=== PATIENT | female | born 1950 ===

== ENCOUNTER 2016-11-22 08:20 | Day surgery (SDC) | payer OTHER ==
[2016-11-21 12:25] VITALS: BMI 32.1
[2016-11-22] MEDS ORDERED: Propofol 10 mg/ml Inj (20 ML) ONE (12:42)
[2016-11-22] MEDS ORDERED: Lactated Ringer's 1,000 ML IV SCH (13:00)
[2016-11-22 13:07] VITALS: TEMP 97.8
[2016-11-22 13:19] VITALS: O2SAT 100
[2016-11-22 13:38] VITALS: BP 120/69; PULSE 60; RESP 13
== END 2016-11-22 13:50 | disposition home or self-care (01) ==
LOC: C.ENDO 08:20
PROVIDERS: ATTEND Internal Medicine Gastroenterology
DX: Z12.11 Encounter for screening for malignant neoplasm of colon (principal); K64.8 Other hemorrhoids
CPT/HCPCS: 45378; 82948; J2704; J7120

== ENCOUNTER 2017-06-09 17:08 | Inpatient (IN) | payer MEDICAID, OTHER ==
[2017-06-09 17:09] VITALS: BMI 32.1
[2017-06-09] MEDS ORDERED: Iohexol 240 (50 ml) PO STA (18:01)
[2017-06-09] MEDS ORDERED: Sodium Chloride 0.9% 1,000 ML IV ONE ×2 (18:01→21:53)
--- NOTE | 2017-06-09 18:02 | C.PDOC ---
History Of Present Illness <Ebony Saldana - Last Filed: 06/09/17 17:58> <Jacqueline Kauffman - Last Filed: 06/09/17 18:13> A 67 year old female, whose past medical history includes Diabetes, HTN, Hypercholesterolemia, Hypothyroidism, and Osteoporosis is brought into the emergency department accompanied by family members for left mid abdominal pain that radiates to her left lower back and occasionally radiates down her left leg , which began 3 days ago. The patient reports that when she came back from [facility] on 05/30/17 she began having constant left ear pain after her flight. Then she began to have the abdominal discomfort, which gradually worsened. Now the patient states she began to have a fever yesterday and her abdominal pain is at its all time worse. The patient denies any nausea, vomiting, diarrhea, dysuria, or any other complaints at this time. (JamariJacqueline) <Ebony Saldana - Last Filed: 06/09/17 17:58> History Per: Patient, Family History/Exam Limitations: no limitations Onset/Duration Of Symptoms: Days (x 3 days) Current Symptoms Are (Timing): Worse Location Of Pain: Ear(s), Headache Associated Symptoms: Fever <Jacqueline Kauffman - Last Filed: 06/09/17 18:13> Time Seen by Provider: 06/09/17 17:41 Chief Complaint (Nursing): Flu-like Symptoms Past Medical History - Medical History PMH: Diabetes, HTN, Hypercholesterolemia, Hypothyroidism, Osteoporosis Denies: Chronic Kidney Disease - Social History Hx Tobacco Use: No Hx Alcohol Use: No Hx Substance Use: No - Immunization History Hx Tetanus Toxoid Vaccination: No Hx Influenza Vaccination: Yes Hx Pneumococcal Vaccination: No <Ebony Saldana - Last Filed: 06/09/17 17:58> Reviewed: Historical Data, Nursing Documentation, Vital Signs Family History: States: Unknown Family Hx <Jacqueline Kauffman - Last Filed: 06/09/17 18:13> Vital Signs: Last Vital Signs Temp 100.1 F H 06/09/17 17:21 Pulse 118 H 06/09/17 17:11 Resp 18 06/09/17 17:11 BP 137/67 06/09/17 17:11 Pulse Ox 99 06/09/17 18:02 - [facility] Procedures CLOSURE SKIN & SUBCUTANEOUS NEC (08/01/13) TETANUS TOXOID ADMINIST (08/01/13) Review Of Systems Except As Marked, All Systems Reviewed And Found Negative. Constitutional: Positive for: Fever ENT: Positive for: Ear Pain. Negative for: Ear Discharge Gastrointestinal: Positive for: Abdominal Pain. Negative for: Nausea, Vomiting , Diarrhea Genitourinary: Negative for: Dysuria Musculoskeletal: Positive for: Back Pain <JamariJacqueline - Last Filed: 06/09/17 18:13> Physical Exam - Physical Exam Appears: Well, Non-toxic, No Acute Distress Skin: Normal Color, Warm, Dry Head: Atraumatic, Normacephalic Ear(s): Bilateral: Normal Nose: Normal Oral Mucosa: Moist Tongue: Normal Appearing Lips: Normal Appearing Gingiva: Normal Appearing Throat: Normal, No Erythema, No Exudate, No Drooling, No Mass Neck: Normal Cardiovascular: Rhythm Regular Respiratory: Normal Breath Sounds Gastrointestinal/Abdominal: Bowel Sounds, Soft, Tenderness (Left mid abdominal tenderness) Back: Other (left lower tenderness) Extremity: Normal ROM Neurological/Psych: Oriented x3, Normal Speech, Normal Cognition <Jacqueline Kauffman - Last Filed: 06/09/17 18:13> ED Course And Treatment O2 Sat by Pulse Oximetry: 99 <Ebony Saldana - Last Filed: 06/09/17 17:58> Medical Decision Making <Ebony Saldana - Last Filed: 06/09/17 17:58> <Jacqueline Kauffman - Last Filed: 06/09/17 18:13> Medical Decision Making: Impression: A 67 year old female with abdominal pain. Treatment Plan: -- ABD & PEL CT -- Labs -- Influenza A B Stat -- Acetaminophen, Iohexol, IV Fluids Progress Notes: (Jacqueline Kauffman) Disposition <Ebony Saldana - Last Filed: 06/09/17 17:58> <JamariJacqueline - Last Filed: 06/09/17 18:13> - Disposition Forms: [facility] (Kyrgyz) <Ebony Saldana - Last Filed: 06/09/17 17:58> - Scribe Statement The provider has reviewed the documentation as recorded by the Scribe <Jacqueline Kauffman - Last Filed: 06/09/17 18:13> - Scribe Statement Parvin Garcia All medical record entries made by the Scribe were at my direction and personally dictated by me. I have reviewed the chart and agree that the record accurately reflects my personal performance of the history, physical exam, medical decision making, and the department course for this patient. I have also personally directed, reviewed, and agree with the discharge instructions and disposition. (Jacqueline Kauffman)
[2017-06-09] MEDS ORDERED: Sodium Chloride 0.9% 1,000 ML ONE (18:19)
--- NOTE | 2017-06-09 18:22 | C.PDOC ---
History Of Present Illness <Ebony Saldana - Last Filed: 06/09/17 19:23> <Saleem Ramon - Last Filed: 06/09/17 21:13> A 67 year old female, whose past medical history includes Diabetes, HTN, Hypercholesterolemia, Hypothyroidism, and Osteoporosis is brought into the emergency department accompanied by family members for left mid abdominal pain that radiates to her left lower back and occasionally radiates down her left leg x3 days. The patient reports that when she came back from [facility] on she began having left ear pain after her flight. Then she began to have the abdominal discomfort, which gradually worsened. Now the patient states she began to have a fever yesterday and her abdominal pain is at its all time worse. The patient denies any nausea, vomiting, diarrhea, dysuria, sick contacts or any other complaints at this time. (Ebony Saldana) History Per: Patient, Family History/Exam Limitations: no limitations Onset/Duration Of Symptoms: Days (3) Current Symptoms Are (Timing): Worse <Ebony Saldana - Last Filed: 06/09/17 19:23> <Saleem Ramon - Last Filed: 06/09/17 21:13> Time Seen by Provider: 06/09/17 17:41 Chief Complaint (Nursing): Flu-like Symptoms Past Medical History Reviewed: Historical Data, Nursing Documentation, Vital Signs - Medical History PMH: Diabetes, HTN, Hypercholesterolemia, Hypothyroidism, Osteoporosis Family History: States: No Known Family Hx - Social History Hx Tobacco Use: No Hx Alcohol Use: No Hx Substance Use: No - Immunization History Hx Tetanus Toxoid Vaccination: No Hx Influenza Vaccination: Yes Hx Pneumococcal Vaccination: No <Ebony Saldana - Last Filed: 06/09/17 19:23> Vital Signs: Last Vital Signs Temp 100.1 F H 06/09/17 17:21 Pulse 118 H 06/09/17 17:11 Resp 18 06/09/17 17:11 BP 137/67 06/09/17 17:11 Pulse Ox 99 06/09/17 19:23 - [facility] Procedures CLOSURE SKIN & SUBCUTANEOUS NEC (08/01/13) TETANUS TOXOID ADMINIST (08/01/13) Review Of Systems Except As Marked, All Systems Reviewed And Found Negative. Constitutional: Positive for: Fever ENT: Positive for: Ear Pain. Negative for: Ear Discharge Gastrointestinal: Positive for: Abdominal Pain. Negative for: Nausea, Vomiting , Diarrhea Genitourinary: Negative for: Dysuria Musculoskeletal: Positive for: Back Pain <Ebony Saldana Last Filed: 06/09/17 19:23> Physical Exam - Physical Exam Appears: Well, Non-toxic, No Acute Distress Skin: Warm, Dry, No Rash Head: Atraumatic, Normacephalic Ear(s): Bilateral: Normal Nose: Normal Oral Mucosa: Moist Tongue: Normal Appearing Lips: Normal Appearing Gingiva: Normal Appearing Throat: Normal, No Erythema, No Exudate, No Drooling Neck: Normal, Normal ROM, Supple Chest: Symmetrical, No Tenderness Cardiovascular: Rhythm Regular, No Murmur Respiratory: Normal Breath Sounds, No Rales, No Wheezing Gastrointestinal/Abdominal: Bowel Sounds, Soft, Tenderness (zLeft mid abdominal tenderness) Back: Normal Inspection, Other ((+) Left lower back tenderness) Extremity: Normal ROM, No Calf Tenderness, No Swelling, Other (no leg pain bl on palpation) Neurological/Psych: Oriented x3, Normal Speech, Normal Motor, Normal Sensation <Josr Saldanaa - Last Filed: 06/09/17 19:23> ED Course And Treatment - Laboratory Results Result Diagrams: 06/09/17 18:17 06/09/17 18:17 Lab Interpretation: Abnormal (leukocytosis) O2 Sat by Pulse Oximetry: 99 (RA) Pulse Ox Interpretation: Normal <Josr Saldanaa Filed: 06/09/17 19:23> - Laboratory Results Result Diagrams: 06/09/17 18:17 06/09/17 18:17 ECG: Interpreted By De ECG Rhythm: Sinus Rhythm ECG Interpretation: Normal Pulse Ox Interpretation: Normal - Radiology CXR: Interpreted by De CXR Interpretation: Yes: No Acute Disease - Other Rad CT Abd/Pelvis X-Ray: Read By Radiologist (+ L Pyelonephritis) Progress Note: ua/UC, Rocephin IV. 1899: signed over @ 1900, pending CT Abd/ pelvis, L abd/flank pain, + leukocytosis/pyuria. Pt seen and examined, NAD, L upper abd discomfort. - Physician Consult Information Outcome Of Conversation: [id number]: d/w Dr Fuchs- Hospitalist Arch Support Technician, ok to Adm Med Surg <Saleem Ramon E - Last Filed: 06/09/17 21:13> Medical Decision Making <Ebony Saldana - Last Filed: 06/09/17 19:23> <Saleem Ramon - Last Filed: 06/09/17 21:13> Medical Decision Making: L pyelo (Saleem Ramon) Disposition - Disposition Disposition Time: 19:22 <Ebony Saldana - Last Filed: 06/09/17 19:23> Doctor Will See Patient In The: Hospital Counseled Patient/Family Regarding: Studies Performed, Diagnosis <Saleem Ramon - Last Filed: 06/09/17 21:13> - Disposition Disposition: HOSPITALIZED Condition: GOOD Forms: [facility] (Latvian) - Clinical Impression Clinical Impression: Abdominal pain, Ear pain, left, Pyelonephritis, acute - PA / [employer] / Resident Statement MD/DO has reviewed & agrees with the documentation as recorded. - Scribe Statement The provider has reviewed the documentation as recorded by the Scribe <Ebony Saldana - Last Filed: 06/09/17 19:23> Physician Patient Turnover Patient Signed Over To: Saleem Ramon Handoff Comments: pending abd CT, flu, labs <Ebony Saldana - Last Filed: 06/09/17 19:23>
[2017-06-09 18:29] LABS: BASO % 0.2 % (0.0-2.0); EOS % 0.3 % (0.0-4.0); HEMATOCRIT 36.6 % (34.0-47.0); LYMPH # 1.4 K/uL (1.0-4.3); LYMPH % 10.3 % (20.0-40.0); MEAN CELL VOLUME 85.4 fL (81.0-99.0); MEAN CORPUSCULAR HEMOGLOBIN 28.9 pg (27.0-31.0); MEAN CORPUSCULAR HGB CONC 33.8 g/dL (33.0-37.0); MEAN PLATELET VOLUME 9.1 fL (7.2-11.7); MONO # 0.7 K/uL (0.0-0.8); MONO % 4.9 % (0.0-10.0); RED CELL DISTRIBUTION WIDTH 12.9 % (11.5-14.5); WHITE BLOOD COUNT 13.8 K/uL (4.8-10.8)
[2017-06-09] MEDS ORDERED: Iohexol 240 (50 ml) ONE (18:38)
[2017-06-09 18:44] LABS: CHLORIDE 98 mmol/L (98-107); POTASSIUM 3.9 mmol/L (3.6-5.2); SODIUM 130 mmol/L (132-148)
[2017-06-09 18:46] LABS: GFR AFRICAN-AMERICAN > 60
[2017-06-09 18:47] LABS: ALB/GLOB RATIO 0.9 (1.0-2.1); ALKALINE PHOSPHATASE 122 U/L (38-126); ALT/SGPT 34 U/L (9-52); AST/SGOT 26 U/L (14-36); BILIRUBIN,TOTAL 0.9 mg/dL (0.2-1.3); BLOOD UREA NITROGEN 12 mg/dL (7-17); CALCIUM 9.1 mg/dl (8.6-10.4); CARBON DIOXIDE 21 mmol/L (22-30); GLUCOSE,RANDOM 144 mg/dL (65-105); TOTAL PROTEIN 7.6 g/dL (6.3-8.3)
[2017-06-09 19:11] LABS: URINE COLOR YELLOW (YELLOW)
[2017-06-09 19:12] LABS: URINE BILIRUBIN NEGATIVE (NEGATIVE); URINE BLOOD LARGE (NEGATIVE); URINE GLUCOSE (UA) NEGATIVE (Normal); URINE KETONE 40 mg/dL (NEGATIVE); URINE PROTEIN 100 mg/dL (NEGATIVE)
[2017-06-09 19:13] LABS: URINE LEUKOCYTE ESTERASE LARGE Leu/uL (Negative); URINE UROBILINOGEN N mg/dL (0.2-1.0)
[2017-06-09 19:22] LABS: RBC URINE 10 /hpf (0-3); URINE BACTERIA MOD (<OCC)
[2017-06-09 19:23] LABS: WBC URINE 25 /hpf (0-5)
[2017-06-09] MEDS ORDERED: Iodixanol 320 MG/ML 100 ML BOTTLE IV ONE (20:04)
[2017-06-09] MEDS ORDERED: cefTRIAXone IV 1 gm in Dextros 50 ML IV STA (21:07)
[2017-06-09] MEDS ORDERED: cefTRIAXone IV 1 gm in Dextros 50 ML IVPB ONE (21:32)
--- NOTE | 2017-06-09 23:12 | CP.PCM.HP ---
<Oscar Rivera - Last Filed: 06/10/17 05:02> History of Present Illness - History of Present Illness History of Present Illness: PGY1 Medicine Note for Dr. Fuchs A 67 year old macedonian speaking female with a past medical history of Diabetes, HTN, Hypercholesterolemia and Osteoporosis was brought into the emergency department accompanied by family members for left mid abdominal pain that radiates to her left lower back. The patient's granddaughter was used to translate at bedside. The patient reports that she began to experience abdominal discomfort approximately 3 days ago. She states that she began to experience subjective fever/chills yesterday and her abdominal pain has been worsening. The patient reports headaches and episodes of dizziness along with the subjective fevers. The patient denies any nausea, vomiting, diarrhea, dysuria, sick contacts or any other complaints at this time. Patient has recently returned from [facility] on May 30, 2017. PMH: Diabetes, HTN, Hypercholesterolemia and Osteoporosis PSH: denies Social: former light smoker (quit in when she was young), denies alcohol and illicit drug use Allergies: NKDA Home Meds: Glimpiride 2mg PO daily Quinapril 10mg PO daily Metformin 1000mg PO BID Atorvastin 20mg PO HS Ibuprofen 600mg PO PRN (takes about twice a week) Vitamin D3 2,000u PO daily Present on Admission - Present on Admission Any Indicators Present on Admission: No Review of Systems - Constitutional Constitutional: Chills, Fever, Headache - EENT Ears: Ear Pain (left, started on air plane on 05/30/17) Nose/Mouth/Throat: absent: Nasal Congestion, Neck Pain - Cardiovascular Cardiovascular: absent: Chest Pain, Leg Edema, Lightheadedness, Palpitations, Pedal Edema - Respiratory Respiratory: absent: Cough - Gastrointestinal Gastrointestinal: Abdominal Pain (mid left sided). absent: Constipation, Diarrhea, Nausea, Vomiting - Genitourinary Genitourinary: Flank Pain (left), Urinary Hesitance. absent: Dysuria, Urinary Frequency, Urinary Urgency Additional comments: Difficult to pee (pt believes it is due to decreased water intake) - Musculoskeletal Musculoskeletal: Back Pain. absent: Muscle Cramps, Numbness, Tingling - Neurological Neurological: Dizziness, Weakness (generalized). absent: Numbness - Psychiatric Psychiatric: absent: Confusion, Depression - Endocrine Endocrine: Cold Intolorance (chills), Heat Intolorance (subjective fevers). absent: Excessive Sweating, Palpitations Past Patient History - Past Medical History & Family History Past Medical History?: Yes - Past Social History Smoking Status: Never Smoked - CARDIAC Hx Hypercholesterolemia: Yes Hx Hypertension: Yes - PULMONARY Hx Respiratory Disorders: No - NEUROLOGICAL Hx Neurological Disorder: No - HEENT Hx HEENT Problems: Yes Hx Cataracts: Yes (BILAT. ( OF 11/21/16-NO SURGERY-POSS. DECEMBER 2016)) - ENDOCRINE/METABOLIC Hx Hypothyroidism: Yes - HEMATOLOGICAL/ONCOLOGICAL Hx Blood Disorders: No - INTEGUMENTARY Hx Dermatological Problems: No - MUSCULOSKELETAL/RHEUMATOLOGICAL Hx Osteoporosis: Yes - GASTROINTESTINAL Hx Gastrointestinal Disorders: No - GENITOURINARY/GYNECOLOGICAL Hx Genitourinary Disorders: No - PSYCHIATRIC Hx Substance Use: No - SURGICAL HISTORY Hx Surgeries: No - ANESTHESIA Hx Anesthesia: No Meds Allergies/Adverse Reactions: Allergies Allergy/AdvReac Type Severity Reaction Status Date / Time No Known Allergies Allergy Verified 06/09/17 17:20 Physical Exam - Constitutional Appears: Non-toxic, No Acute Distress - Head Exam Head Exam: ATRAUMATIC, NORMOCEPHALIC - Eye Exam Eye Exam: EOMI, Normal appearance, PERRL. absent: Scleral icterus - ENT Exam ENT Exam: Mucous Membranes Moist - Respiratory Exam Respiratory Exam: NORMAL BREATHING PATTERN. absent: Accessory Muscle Use, Respiratory Distress - Cardiovascular Exam Cardiovascular Exam: REGULAR RHYTHM, +S1, +S2. absent: JVD - GI/Abdominal Exam GI & Abdominal Exam: Normal Bowel Sounds, Soft. absent: Distended, Firm, Guarding, Rebound, Rigid, Tenderness - Extremities Exam Extremities exam: Positive for: normal capillary refill, normal inspection, pedal pulses present. Negative for: calf tenderness, pedal edema - Back Exam Back exam: CVA tenderness (L). absent: CVA tenderness (R), paraspinal tenderness, vertebral tenderness - Neurological Exam Neurological exam: Alert, Oriented x3 - Psychiatric Exam Psychiatric exam: Normal Affect, Normal Mood - Skin Skin Exam: Dry, Normal Color, Warm Results - Vital Signs Recent Vital Signs: Last Vital Signs Temp 99.2 F 06/09/17 22:03 Pulse 95 H 06/09/17 22:03 Resp 18 06/09/17 22:03 BP 106/70 06/09/17 22:03 Pulse Ox 97 06/09/17 22:03 - Labs Result Diagrams: 06/09/17 18:17 06/09/17 18:17 Labs: Laboratory Results - last 24 hr 06/09/17 06/09/17 06/09/17 18:17 18:17 18:39 WBC 13.8 H RBC 4.29 Hgb 12.4 Hct 36.6 MCV 85.4 D MCH 28.9 MCHC 33.8 RDW 12.9 Plt Count 213 MPV 9.1 Neut % (Auto) 84.3 H Lymph % (Auto) 10.3 L Hardeman % (Auto) 4.9 Eos % (Auto) 0.3 Baso % (Auto) 0.2 Neut # 11.6 H Lymph # 1.4 Hardeman # 0.7 Eos # 0.0 Baso # 0.0 Sodium 130 L Potassium 3.9 Chloride 98 Carbon Dioxide 21 L Anion Gap 15 BUN 12 Creatinine 1.0 Est GFR ( Amer) > 60 Est GFR (Non-Af Amer) 55 Random Glucose 144 H Calcium 9.1 Total Bilirubin 0.9 AST 26 ALT 34 Alkaline Phosphatase 122 Total Protein 7.6 Albumin 3.6 Globulin 4.0 H Albumin/Globulin Ratio 0.9 L Lipase 35 Urine Color Yellow Urine Clarity Slight-cloudy Urine pH 6.0 Ur Specific Alloy 1.020 Urine Protein 100 Urine Glucose (UA) Negative Urine Ketones 40 Urine Blood Large Urine Nitrate Negative Urine Bilirubin Negative Urine Urobilinogen N Ur Leukocyte Esterase Large Urine WBC (Auto) 25 H Urine RBC (Auto) 10 H Ur Squamous Epith Cells 12 H Urine Bacteria Mod H Influenza Typ A,B (EIA) 06/09/17 19:08 WBC RBC Hgb Hct MCV MCH MCHC RDW Plt Count MPV Neut % (Auto) Lymph % (Auto) Hardeman % (Auto) Eos % (Auto) Baso % (Auto) Neut # Lymph # Hardeman # Eos # Baso # Sodium Potassium Chloride Carbon Dioxide Anion Gap BUN Creatinine Est GFR ( Amer) Est GFR (Non-Af Amer) Random Glucose Calcium Total Bilirubin AST ALT Alkaline Phosphatase Total Protein Albumin Globulin Albumin/Globulin Ratio Lipase Urine Color Urine Clarity Urine pH Ur Specific Alloy Urine Protein Urine Glucose (UA) Urine Ketones Urine Blood Urine Nitrate Urine Bilirubin Urine Urobilinogen Ur Leukocyte Esterase Urine WBC (Auto) Urine RBC (Auto) Ur Squamous Epith Cells Urine Bacteria Influenza Typ A,B (EIA) Negative for flu a/b Assessment & Plan - Assessment and Plan (Free Text) Assessment: Pyelonephritis 2/2 UTI Abd/Pelvis CT w/PO & IV contrast - edema and fat stranding seen surrounding left kidney, suggestive of pyelonephritis. awaiting official read. Leukocytosis 13.8 Temp 100.1 oral UA - large blood, large leuk esterase, bacteria mod - EPITH CELLS = 12 - repeat UA f/u urine and blood cultures Rocephin 1 gm IVPB daily Tylenol 650mg PO Q6 PRN for fever/pain Diabetes Continued home Glimepiride 2mg PO daily Held home Metformin 1000mg PO BID HTN Enalapril 5mg PO daily Hypercholesterolemia Crestor 10mg PO HS Osteoporosis Vitamin D3 2,000u PO daily Prophylactic Care SCDs Heparin 5,000 units SC Q8 Pepcid 20mg PO daily Case discussed with Dr. Shila Rivera PGY1 <Bubba Fuchs P - Last Filed: 06/10/17 07:38> Results - Vital Signs Recent Vital Signs: Last Vital Signs Temp 98.7 F 06/10/17 00:00 Pulse 107 H 06/10/17 02:30 Resp 20 06/10/17 04:04 BP 106/70 06/09/17 22:03 Pulse Ox 97 06/10/17 00:00 - Labs Result Diagrams: 06/09/17 18:17 06/09/17 18:17 Labs: Laboratory Results - last 24 hr 06/09/17 06/09/17 06/09/17 18:17 18:17 18:39 WBC 13.8 H RBC 4.29 Hgb 12.4 Hct 36.6 MCV 85.4 D MCH 28.9 MCHC 33.8 RDW 12.9 Plt Count 213 MPV 9.1 Neut % (Auto) 84.3 H Lymph % (Auto) 10.3 L Hardeman % (Auto) 4.9 Eos % (Auto) 0.3 Baso % (Auto) 0.2 Neut # 11.6 H Lymph # 1.4 Hardeman # 0.7 Eos # 0.0 Baso # 0.0 Sodium 130 L Potassium 3.9 Chloride 98 Carbon Dioxide 21 L Anion Gap 15 BUN 12 Creatinine 1.0 Est GFR ( Amer) > 60 Est GFR (Non-Af Amer) 55 POC Glucose (mg/dL) Random Glucose 144 H Calcium 9.1 Total Bilirubin 0.9 AST 26 ALT 34 Alkaline Phosphatase 122 Total Protein 7.6 Albumin 3.6 Globulin 4.0 H Albumin/Globulin Ratio 0.9 L Lipase 35 Urine Color Yellow Urine Clarity Slight-cloudy Urine pH 6.0 Ur Specific Alloy 1.020 Urine Protein 100 Urine Glucose (UA) Negative Urine Ketones 40 Urine Blood Large Urine Nitrate Negative Urine Bilirubin Negative Urine Urobilinogen N Ur Leukocyte Esterase Large Urine WBC (Auto) 25 H Urine RBC (Auto) 10 H Ur Squamous Epith Cells 12 H Urine Bacteria Mod H Influenza Typ A,B (EIA) 06/09/17 06/10/17 19:08 01:52 WBC RBC Hgb Hct MCV MCH MCHC RDW Plt Count MPV Neut % (Auto) Lymph % (Auto) Hardeman % (Auto) Eos % (Auto) Baso % (Auto) Neut # Lymph # Hardeman # Eos # Baso # Sodium Potassium Chloride Carbon Dioxide Anion Gap BUN Creatinine Est GFR ( Amer) Est GFR (Non-Af Amer) POC Glucose (mg/dL) 191 H Random Glucose Calcium Total Bilirubin AST ALT Alkaline Phosphatase Total Protein Albumin Globulin Albumin/Globulin Ratio Lipase Urine Color Urine Clarity Urine pH Ur Specific Alloy Urine Protein Urine Glucose (UA) Urine Ketones Urine Blood Urine Nitrate Urine Bilirubin Urine Urobilinogen Ur Leukocyte Esterase Urine WBC (Auto) Urine RBC (Auto) Ur Squamous Epith Cells Urine Bacteria Influenza Typ A,B (EIA) Negative for flu a/b Attending/Attestation - Attestation I have personally seen and examined this patient.: Yes I have fully participated in the care of the patient.: Yes I have reviewed all pertinent clinical information: Yes Notes (Text): Assessment/Plan * Left pyelonehritis diagnosed with symptoms of pain in left flank, fever, L CVA tenderness, UA finding, CT iv contrast findings of inhomogenous inhancement of cortex and fat stranding, started rocephin iv, pending culture urine/blood. * DM on OHA controlled.
[2017-06-10 04:17] VITALS: RESP 20
[2017-06-10 08:03] LABS: BASO % 0.1 % (0.0-2.0); HEMATOCRIT 34.3 % (34.0-47.0); LYMPH # 1.1 K/uL (1.0-4.3); LYMPH % 5.8 % (20.0-40.0); MEAN CELL VOLUME 86.2 fL (81.0-99.0); MEAN CORPUSCULAR HEMOGLOBIN 29.1 pg (27.0-31.0); MEAN CORPUSCULAR HGB CONC 33.7 g/dL (33.0-37.0); MEAN PLATELET VOLUME 9.3 fL (7.2-11.7); MONO % 5.4 % (0.0-10.0); PLATELET COUNT 191 K/uL (130-400); RED CELL DISTRIBUTION WIDTH 12.7 % (11.5-14.5); WHITE BLOOD COUNT 18.9 K/uL (4.8-10.8)
[2017-06-10 08:19] LABS: POTASSIUM 3.4 mmol/L (3.6-5.2)
[2017-06-10 08:22] LABS: ALB/GLOB RATIO 0.9 (1.0-2.1); BILIRUBIN,TOTAL 0.5 mg/dL (0.2-1.3); CALCIUM 8.3 mg/dl (8.6-10.4); TOTAL PROTEIN 6.4 g/dL (6.3-8.3)
[2017-06-10] MEDS ORDERED: Dextrose 50% SYRINGE Inj (50 ml) IVP PRN (08:35)
[2017-06-10] MEDS ORDERED: Glucagon Recombinant 1 mg Inj IM PRN (08:35)
[2017-06-10] MEDS ORDERED: Sodium Chloride 0.9% 1,000 ML IV ONE (08:37)
--- NOTE | 2017-06-10 09:03 | CT ---
PROCEDURE: CT Abdomen and Pelvis with contrast HISTORY: abd pain COMPARISON: Comparison is made to the previous study dated 01/25/2015 TECHNIQUE: Contrast dose: 100 mL Visipaque 320. Axial and reformatted coronal and sagittal CT images of the abdomen and pelvis were obtained after IV and oral contrast administration. Radiation dose: Total exam DLP = 967.37 mGy-cm. This CT exam was performed using one or more of the following dose reduction techniques: Automated exposure control, adjustment of the mA and/or kV according to patient size, and/or use of iterative reconstruction technique. FINDINGS: LOWER THORAX: No evidence of acute pathology. LIVER: Unremarkable. No gross lesion or ductal dilatation. GALLBLADDER AND BILE DUCTS: Unremarkable. PANCREAS: Unremarkable. No gross lesion or ductal dilatation. SPLEEN: Unremarkable. ADRENALS: Unremarkable. No mass. KIDNEYS AND URETERS: There is a patchy striated nephrogram in the left kidney associated with slight dilatation of the right kidney collecting system and diffuse thickening of the wall of the collecting system. Moderate left perinephric stranding and periureteral stranding is also noted. Findings suggestive of pyelonephritis. The right kidney is grossly unremarkable. No CT evidence of obstructing stone. VASCULATURE: Unremarkable. No aortic aneurysm. BOWEL: Unremarkable. No obstruction. No gross mural thickening. APPENDIX: No evidence of appendicitis. PERITONEUM: Unremarkable. No free fluid. No free air. LYMPH NODES: Mildly enlarged lymph nodes are seen adjacent to the left kidney likely reactive. BLADDER: Mild urinary bladder wall thickening. REPRODUCTIVE: Unremarkable. BONES: No acute fracture. OTHER FINDINGS: None. IMPRESSION: Patchy and striated nephrogram of the left kidney associated with mildly dilated collecting system which also demonstrate diffuse wall thickening and also associated with moderate perinephric stranding. Finding suggestive of acute pyelonephritis Mild urinary bladder wall thickening. Otherwise no acute pathology in the abdomen and pelvis. Preliminary report was submitted by [facility].
[2017-06-10] MEDS: Ergocalciferol 50,000 Intl Units Cap PO SCH (09:11)
[2017-06-10 09:26] LABS: RBC URINE 28 /hpf (0-3); URINE BACTERIA FEW (<OCC); URINE BILIRUBIN NEGATIVE (NEGATIVE); URINE BLOOD 1+ (NEGATIVE); URINE COLOR Amber (YELLOW); URINE GLUCOSE (UA) NORMAL (Normal); URINE KETONE NEGATIVE (NEGATIVE); URINE LEUKOCYTE ESTERASE 3+ Leu/uL (Negative); URINE PROTEIN 2+ mg/dL (NEGATIVE); URINE UROBILINOGEN NORMAL mg/dL (0.2-1.0); WBC URINE 169 /hpf (0-5)
--- NOTE | 2017-06-10 09:48 | RAD ---
PROCEDURE: CHEST RADIOGRAPH, 1 VIEW HISTORY: fever, weak COMPARISON: None available. FINDINGS: LUNGS: Mild bibasilar atelectasis. Suspicious for small infiltrate at the right middle lobe. PLEURA: No pneumothorax or pleural fluid seen. CARDIOVASCULAR: Normal. OSSEOUS STRUCTURES: No significant abnormalities. VISUALIZED UPPER ABDOMEN: Normal. OTHER FINDINGS: None. IMPRESSION: Suspicious for small infiltrate or atelectasis at the right middle lobe. The possibility of pneumonia is not excluded.
[2017-06-10] MEDS: Sodium Chloride 0.9% 1,000 ML IV SCH ×3 (11:15→21:06)
[2017-06-10 11:24] LABS: NEUTROPHIL 72 % (50-75); TOTAL CELLS COUNTED 100
[2017-06-10 11:26] LABS: LARGE PLATELETS PRESENT
[2017-06-10 11:27] LABS: GIANT PLATELETS PRESENT
[2017-06-10] MEDS: (Novolog) Insulin Aspart, Recombinant 100 u/ml 10 ml vial SC SCH ×3 (11:52→22:00)
--- NOTE | 2017-06-10 17:32 | CP.PCM.PN ---
Addendum entered and electronically signed by Stephany Olivares DO 06/10/17 17:42 : Addition to A/P: Right lung infiltrate CXR- right middle lobe infiltrate, consider pneumonia (see full report) f/u mycoplasma, procalcitonin, legionella, strep pneumo Start Azithromycin 500mg IV q24h Hyponatremia Na+ 130 f/u TSH, T4 f/u lipid panel f/u cortisol AM f/u urine and serum osmolality Diarrhea f/u stool culture, leukocytes, giardia, electrolytes, C diff Original Note: <Stephany Olivares - Last Filed: 06/10/17 17:28> Subjective - Date & Time of Evaluation Date of Evaluation: 06/10/17 Time of Evaluation: 09:00 - Subjective Subjective: Medicine Progress Note Patient seen and examined with family members at bedside. Patient states that she feels well today. The patient was experiencing bilateral back pain yesterday but patient states that it has improved. She complains of dysuria. Denies fever, chills, nausea, vomiting, diarrhea, chest pain, shortness of breath, palpitations, dizziness, headache, and abdominal pain. Objective - Vital Signs/Intake and Output Vital Signs (last 24 hours): Temp Pulse Resp BP Pulse Ox 98.4 F 103 H 20 131/70 100 06/10/17 16:30 06/10/17 16:30 06/10/17 16:30 06/10/17 16:30 06/10/17 16:30 Intake and Output: 06/10/17 06/10/17 06:59 18:59 Intake Total 240 1960 Balance 240 1960 - Medications Medications: Current Medications Acetaminophen (Tylenol 325mg Tab) 650 mg PO Q6 PRN PRN Reason: fever or pain Dextrose (Dextrose 50% Inj) 0 ml IVP .STAT PRN; Protocol PRN Reason: Hypoglycemia Protocol Dextrose (Glutose 15) 0 gm PO .ONCE PRN; Protocol PRN Reason: Hypoglycemia Protocol Enalapril Maleate (Vasotec) 5 mg PO DAILY [facility] Last Admin: 06/10/17 09:12 Dose: Not Given Ergocalciferol (Drisdol 50,000 Intl Units Cap) 1 cap PO QWK [facility] Last Admin: 06/10/17 09:11 Dose: 1 cap Famotidine (Pepcid) 20 mg PO DAILY [facility] Last Admin: 06/10/17 09:11 Dose: 20 mg Glimepiride (Amaryl) 2 mg PO DAILY [facility] Last Admin: 06/10/17 09:11 Dose: 2 mg Glucagon (Glucagen Diagnostic Kit) 0 mg IM .STAT PRN; Protocol PRN Reason: Hypoglycemia Protocol Heparin Sodium (Porcine) (Heparin) 5,000 units SC Q8 [facility] Last Admin: 06/10/17 14:06 Dose: 5,000 units Ceftriaxone Sodium 1 gm/ (Sodium Chloride) 100 mls @ 100 mls/hr IVPB DAILY [facility] Last Admin: 06/10/17 09:59 Dose: 100 mls/hr Dextrose (Dextrose 5% In Water 1000 Ml) 1,000 mls @ 0 mls/hr IV .Q0M PRN; Protocol; Per Protocol PRN Reason: Hypoglycemia Protocol Sodium Chloride (Sodium Chloride 0.9%) 1,000 mls @ 150 mls/hr IV .Q6H40M [facility] Last Admin: 06/10/17 11:15 Dose: 150 mls/hr Azithromycin 500 mg/ Sodium (Chloride) 250 mls @ 250 mls/hr IVPB Q24H [facility] Insulin Aspart (Novolog) 0 unit SC ACHS [facility] PRN Reason: Protocol Last Admin: 06/10/17 11:52 Dose: 3 unit Ondansetron HCl (Zofran Inj) 4 mg IVP Q6H PRN PRN Reason: Nausea/Vomiting Rosuvastatin Calcium (Crestor) 10 mg PO HS [facility] Saccharomyces Boulardii (Florastor) 250 mg PO BID [facility] - Labs Labs: 06/10/17 07:54 06/10/17 07:54 - Constitutional Appears: Non-toxic, No Acute Distress - Head Exam Head Exam: ATRAUMATIC, NORMOCEPHALIC - Eye Exam Eye Exam: EOMI, Normal appearance Pupil Exam: NORMAL ACCOMODATION - ENT Exam ENT Exam: Mucous Membranes Moist, Normal Exam - Neck Exam Neck Exam: Full ROM, Normal Inspection - Respiratory Exam Respiratory Exam: Clear to Ausculation Bilateral, NORMAL BREATHING PATTERN. absent: Rhonchi, Wheezes, Respiratory Distress - Cardiovascular Exam Cardiovascular Exam: REGULAR RHYTHM, +S1, +S2 - GI/Abdominal Exam GI & Abdominal Exam: Soft, Normal Bowel Sounds. absent: Distended, Firm, Guarding, Rigid, Tenderness - Extremities Exam Extremities Exam: Full ROM, Normal Inspection. absent: Pedal Edema - Back Exam Back Exam: CVA tenderness (L). absent: muscle spasm, rash noted - Neurological Exam Neurological Exam: Alert, Awake, CN II-XII Intact, Oriented x3 - Psychiatric Exam Psychiatric exam: Normal Affect, Normal Mood - Skin Skin Exam: Dry, Intact, Normal Color, Warm Assessment and Plan - Assessment and Plan (Free Text) Assessment: Pyelonephritis 2/2 UTI Abd/Pelvis CT w/PO & IV contrast - edema and fat stranding seen surrounding left kidney, suggestive of pyelonephritis. Leukocytosis- WBC increased to 18.9 with left shift and 19 bands Temp 100.1 oral in ED, afebrile since admission UA - large blood, large leuk esterase, bacteria mod - EPITH CELLS = 12 - f/u repeat UA f/u urine and blood cultures Rocephin 1 gm IVPB daily Tylenol 650mg PO Q6 PRN for fever/pain Consulted ID Dr Rao- will f/u recommendations Monitor closely for sepsis Diabetes Accuchecks ISS Continued home Glimepiride 2mg PO daily Held home Metformin 1000mg PO BID Enalapril 5mg PO daily Hypotension Patient hypotensive today- given 1L bolus NS in AM and started IVF NS @150cc/hr BP currently stable and patient asymptomatic. Will continue to monitor vitals q4h. Hypercholesterolemia Crestor 10mg PO HS Osteoporosis Vitamin D3 2,000u PO daily Prophylactic Care SCDs Heparin 5,000 units SC Q8 Pepcid 20mg PO daily <Harvey Roberto - Last Filed: 06/10/17 21:56> Objective - Vital Signs/Intake and Output Vital Signs (last 24 hours): Temp Pulse Resp BP Pulse Ox 99.4 F 103 H 20 131/70 100 06/10/17 21:11 06/10/17 16:30 06/10/17 16:30 06/10/17 16:30 06/10/17 16:30 Intake and Output: 06/10/17 06/11/17 18:59 06:59 Intake Total 1960 Balance 1960 - Medications Medications: Current Medications Acetaminophen (Tylenol 325mg Tab) 650 mg PO Q6 PRN PRN Reason: fever or pain Last Admin: 06/10/17 21:11 Dose: 650 mg Dextrose (Dextrose 50% Inj) 0 ml IVP .STAT PRN; Protocol PRN Reason: Hypoglycemia Protocol Dextrose (Glutose 15) 0 gm PO .ONCE PRN; Protocol PRN Reason: Hypoglycemia Protocol Enalapril Maleate (Vasotec) 5 mg PO DAILY [facility] Last Admin: 06/10/17 09:12 Dose: Not Given Ergocalciferol (Drisdol 50,000 Intl Units Cap) 1 cap PO QWK [facility] Last Admin: 06/10/17 09:11 Dose: 1 cap Famotidine (Pepcid) 20 mg PO DAILY [facility] Last Admin: 06/10/17 09:11 Dose: 20 mg Glimepiride (Amaryl) 2 mg PO DAILY [facility] Last Admin: 06/10/17 09:11 Dose: 2 mg Glucagon (Glucagen Diagnostic Kit) 0 mg IM .STAT PRN; Protocol PRN Reason: Hypoglycemia Protocol Heparin Sodium (Porcine) (Heparin) 5,000 units SC Q8 [facility] Last Admin: 06/10/17 21:08 Dose: 5,000 units Dextrose (Dextrose 5% In Water 1000 Ml) 1,000 mls @ 0 mls/hr IV .Q0M PRN; Protocol; Per Protocol PRN Reason: Hypoglycemia Protocol Sodium Chloride (Sodium Chloride 0.9%) 1,000 mls @ 150 mls/hr IV .Q6H40M [facility] Last Admin: 06/10/17 21:06 Dose: 150 mls/hr Azithromycin 500 mg/ Sodium (Chloride) 250 mls @ 250 mls/hr IVPB Q24H [facility] Last Admin: 06/10/17 18:20 Dose: 250 mls/hr Meropenem 500 mg/ Sodium (Chloride) 100 mls @ 200 mls/hr IVPB Q8 [facility] Last Admin: 06/10/17 21:04 Dose: 200 mls/hr Insulin Aspart (Novolog) 0 unit SC ACHS [facility] PRN Reason: Protocol Last Admin: 06/10/17 18:03 Dose: Not Given Ondansetron HCl (Zofran Inj) 4 mg IVP Q6H PRN PRN Reason: Nausea/Vomiting Last Admin: 06/10/17 18:27 Dose: 4 mg Rosuvastatin Calcium (Crestor) 10 mg PO HS [facility] Last Admin: 06/10/17 21:07 Dose: 10 mg Saccharomyces Boulardii (Florastor) 250 mg PO BID [facility] Last Admin: 06/10/17 18:19 Dose: 250 mg - Labs Labs: 06/10/17 07:54 06/10/17 07:54 Attending/Attestation - Attestation I have personally seen and examined this patient.: Yes I have fully participated in the care of the patient.: Yes I have reviewed all pertinent clinical information, including history, physical exam and plan: Yes Notes (Text): 06/10/17 21:48 Patient was seen and examined at 5:15 PM 06/11/17 with GrandDaughter and Brother present and this was ok with patient Upon ROS: Left Flank Pain 1 episode of N/V clear material right before my exam [place] Right Knee Pain that is chronic for may years Watery bowel movement earlier today without blood Upon Exam: Resp: Right Basilar Inspiratory Rales GI: Left Flank CVA tenderness upon palpation Assessment and Plan: 1). Left Pyelonephritis Ceftriaxone F/U Urine Cx ID Dr. Rao for further recommendations 2). RML Possible Atelectasis/Pnuemonia Azithromycin 500 mg IV 1x/day F/U Urine Legionella F/U Urine Strep pneum F/U Mycoplasma IgM, IgG F/U Rapid Influenza F/U ID Dr. Rao 3). Gram Negative Bacteremia Blood Culture shows Gram Negative Bacteremia F/U Sensitivities for Blood Culture On Cefriaxone 4). Hyponatremia F/U Serum Osm F/U Urine Osm F/U Urine Na F/U TSH, T4 F/U Lipid Panel F/U Cortisol 5). Hypokalemia KCl 40 mEQ x 1 dose 6). Mild Acidosis Treat the Pyelonephritis/Pnuemonia/Bacteremia Harvey Roberto D.O.
[2017-06-10] MEDS ORDERED: Potassium Chloride 20 mEq ER Tab PO ONE (18:00)
--- NOTE | 2017-06-10 18:05 | CP.PCM.CON ---
History of Present Illness - History of Present Illness History of Present Illness: A 67 year old with a past medical history of Diabetes, HTN, Hypercholesterolemia and Osteoporosis was brought into the emergency department accompanied by family members for left mid abdominal pain that radiates to her left lower back. she began to experience abdominal discomfort approximately 3 days ago and she began to experience subjective fever/chills yesterday and her abdominal pain has been worsening. . Patient has recently returned from [facility] on May 30, 2017. PMH: Diabetes, HTN, Hypercholesterolemia and Osteoporosis PSH: denies Social: former light smoker (quit in when she was young), denies alcohol and illicit drug use Allergies: NKDA Review of Systems - Constitutional Constitutional: As Per HPI, Anorexia, Chills, Fever, Malaise - EENT Eyes: absent: As Per HPI, Blind Spots, Blurred Vision, Change in Vision, Decreased Night Vision, Diplopia, Discharge, Dry Eye, Exophthalmos, Floaters, Irritation, Itchy Eyes, Loss of Peripheral Vision, Pain, Photophobia, Requires Corrective Lenses, Sees Flashes, Spots in Vision, Tunnel Vision, Other Visual Disturbances, Loss of Vision, Other Ears: absent: As Per HPI, Decreased Hearing, Ear Discharge, Ear Pain, Tinnitus, Abnormal Hearing, Disequilibrium, Dizziness, Other Nose/Mouth/Throat: absent: As Per HPI, Epistaxis, Nasal Congestion, Nasal Discharge, Nasal Obstruction, Nasal Trauma, Nose Pain, Post Nasal Drip, Sinus Pain, Sinus Pressure, Bleeding Gums, Change in Voice, Dental Pain, Dry Mouth, Dysphagia, Halitosis, Hoarsness, Lip Swelling, Mouth Lesions, Mouth Pain, Odynophagia, Sore Throat, Throat Swelling, Tongue Swelling, Facial Pain, Neck Pain, Neck Mass, Other - Breasts Breasts: absent: As Per HPI, Change in Shape, Mass, Pain, Nipple Discharge, Nipple Inversion, Skin Changes, Swelling, Other - Cardiovascular Cardiovascular: absent: As Per HPI, Acrocyanosis, Chest Pain, Chest Pain at Rest , Chest Pain with Activity, Claudication, Diaphoresis, Dyspnea, Dyspnea on Exertion, Edema, Irregular Heart Rhythm, Pain Radiating to Arm/Neck/Jaw, Leg Edema, Leg Ulcers, Lightheadedness, Orthopnea, Palpitations, Paroxysmal Nocturnal Dyspnea, Pedal Edema, Radiating Pain, Rapid Heart Rate, Slow Heart Rate, Syncope, Other - Respiratory Respiratory: absent: As Per HPI, Cough, Dyspnea, Hemoptysis, Dyspnea on Exertion , Wheezing, Snoring, Stridor, Pain on Inspiration, Chest Congestion, Excessive Mucous Production, Change in Mucous Color, Pain with Coughing, Other - Gastrointestinal Gastrointestinal: As Per HPI - Genitourinary Genitourinary: As Per HPI - Reproductive: Female Reproductive:Female: absent: As Per HPI, Amenorrhea, Amenorrhea/ Control, Currently Menstual, Cycle <21 Days, Cycle >35 Days, Cycle Variable, Menses 1-7 Days, Menses >/= 8 Days, Menses Variable, Cycle > 4 Weeks Between, No Menses for 6 Months, Heavy Menses, Light Menses, Normal Menses, Spotting Between Cycles , S/P Hysterectomy, Menopausal, Post Menopausal, Premenarche, Abnormal Vaginal Bleeding, Dysmenorrhea, Dyspareunia, Genital Lesions, Genital Pruritis, Pelvic Pain, Prolapse Symptoms, Sexual Dysfunction, Vaginal Discharge, Vaginal Dryness , Vaginal Odor, Vaginal Pruritis, Other - Menstruation Menstruation: absent: As Per HPI, Amenorrhea, Amenorrhea/ Control, Currently Menstual, Cycle <21 Days, Cycle >35 Days, Cycle Variable, Menses 1-7 Days, Menses >/= 8 Days, Menses Variable, Cycle > 4 Weeks Between, No Menses for 6 Months, Heavy Menses, Light Menses, Normal Menses, Spotting Between Cycles , S/P Hysterectomy, Menopausal, Post Menopausal, Premenarche, Abnormal Vaginal Bleeding, Dysmenorrhea, Other - Musculoskeletal Musculoskeletal: absent: As Per HPI, Abnormal Gait, Arthralgias, Atrophy, Back Pain, Deformity, Joint Swelling, Limited Range of Motion, Loss of Height, Muscle Cramps, Muscle Weakness, Myalgias, Neck Pain, Numbness, Radiating Pain into Limb, Stiffness, Tingling, Other - Integumentary Integumentary: absent: As Per HPI, Acne, Alopecia, Bleeding Lesions, Change in Hair, Change in Nails, Change in Pigmentation, Changing Lesions, Dry Skin, Erythema, Furuncle, Hirsutism, Lesions, New Lesions, Non-Healing Lesions, Photosensitivity, Pruritus, Rash, Skin Pain, Skin Ulcer, Sores, Striae, Swelling , Unusual Bruising, Wounds, Jaundice, Other - Neurological Neurological: absent: As Per HPI, Abnormal Gait, Abnormal Hearing, Abnormal Movements, Abnormal Speech, Behavioral Changes, Burning Sensations, Confusion, Convulsions, Disequilibrium, Dizziness, Numbness, Focal Weakness, Frequent Falls , Headaches, Lack of Coordination, Loss of Vision, Memory Loss, Paresthesias, Radicular Pain, Restless Legs, Sensory Deficit, Syncope, Tingling, Tremor, Vertigo, Weakness, Other Visual Disturbances, Other - Psychiatric Psychiatric: absent: As Per HPI, Abnormal Sleep Pattern, Anhedonia, Anxiety, Auditory Hallucinations, Behavioral Changes, Change in Appetite, Change in Libido, Confusion, Depression, Difficulty Concentrating, Hallucinations, Homicidal Ideation, Hopelessness, Irritability, Memory Loss, Mood Swings, Panic Attacks, Paranoia, Suicidal Ideation, Visual Hallucinations, Tactile Hallucinations, Other - Endocrine Endocrine: As Per HPI - Hematologic/Lymphatic Hematologic: absent: As Per HPI, Easy Bleeding, Easy Bruising, Lymphadenopathy, Other Past Patient History - Past Medical History & Family History Past Medical History?: Yes - Past Social History Smoking Status: Never Smoked - CARDIAC Hx Cardiac Disorders: Yes Hx Hypercholesterolemia: Yes Hx Hypertension: Yes - PULMONARY Hx Respiratory Disorders: No - NEUROLOGICAL Hx Neurological Disorder: No - HEENT Hx HEENT Problems: Yes Hx Cataracts: Yes (BILAT. ( OF 11/21/16-NO SURGERY-POSS. DECEMBER 2016)) - RENAL Hx Chronic Kidney Disease: No - ENDOCRINE/METABOLIC Hx Endocrine Disorders: Yes Hx Diabetes Mellitus Type 2: Yes Hx Hypothyroidism: Yes - HEMATOLOGICAL/ONCOLOGICAL Hx Blood Disorders: No - INTEGUMENTARY Hx Dermatological Problems: No - MUSCULOSKELETAL/RHEUMATOLOGICAL Hx Falls: No - GASTROINTESTINAL Hx Gastrointestinal Disorders: No - GENITOURINARY/GYNECOLOGICAL Hx Genitourinary Disorders: No - PSYCHIATRIC Hx Psychophysiologic Disorder: No Hx Substance Use: No - SURGICAL HISTORY Hx Surgeries: No - ANESTHESIA Hx Anesthesia: No Meds Allergies/Adverse Reactions: Allergies Allergy/AdvReac Type Severity Reaction Status Date / Time No Known Allergies Allergy Verified 06/09/17 17:20 - Medications Medications: Current Medications Acetaminophen (Tylenol 325mg Tab) 650 mg PO Q6 PRN PRN Reason: fever or pain Dextrose (Dextrose 50% Inj) 0 ml IVP .STAT PRN; Protocol PRN Reason: Hypoglycemia Protocol Dextrose (Glutose 15) 0 gm PO .ONCE PRN; Protocol PRN Reason: Hypoglycemia Protocol Enalapril Maleate (Vasotec) 5 mg PO DAILY [facility] Last Admin: 06/10/17 09:12 Dose: Not Given Ergocalciferol (Drisdol 50,000 Intl Units Cap) 1 cap PO QWK [facility] Last Admin: 06/10/17 09:11 Dose: 1 cap Famotidine (Pepcid) 20 mg PO DAILY [facility] Last Admin: 06/10/17 09:11 Dose: 20 mg Glimepiride (Amaryl) 2 mg PO DAILY [facility] Last Admin: 06/10/17 09:11 Dose: 2 mg Glucagon (Glucagen Diagnostic Kit) 0 mg IM .STAT PRN; Protocol PRN Reason: Hypoglycemia Protocol Heparin Sodium (Porcine) (Heparin) 5,000 units SC Q8 [facility] Last Admin: 06/10/17 14:06 Dose: 5,000 units Ceftriaxone Sodium 1 gm/ (Sodium Chloride) 100 mls @ 100 mls/hr IVPB DAILY [facility] Last Admin: 06/10/17 09:59 Dose: 100 mls/hr Dextrose (Dextrose 5% In Water 1000 Ml) 1,000 mls @ 0 mls/hr IV .Q0M PRN; Protocol; Per Protocol PRN Reason: Hypoglycemia Protocol Sodium Chloride (Sodium Chloride 0.9%) 1,000 mls @ 150 mls/hr IV .Q6H40M [facility] Last Admin: 06/10/17 11:15 Dose: 150 mls/hr Azithromycin 500 mg/ Sodium (Chloride) 250 mls @ 250 mls/hr IVPB Q24H [facility] Insulin Aspart (Novolog) 0 unit SC ACHS [facility] PRN Reason: Protocol Last Admin: 06/10/17 11:52 Dose: 3 unit Ondansetron HCl (Zofran Inj) 4 mg IVP Q6H PRN PRN Reason: Nausea/Vomiting Rosuvastatin Calcium (Crestor) 10 mg PO HS [facility] Saccharomyces Boulardii (Florastor) 250 mg PO BID [facility] Physical Exam - Constitutional Appears: Non-toxic, Chronically Ill - Head Exam Head Exam: NORMOCEPHALIC - Eye Exam Eye Exam: PERRL. absent: Scleral icterus - ENT Exam ENT Exam: Mucous Membranes Dry, Normal External Ear Exam - Neck Exam Neck exam: Negative for: Lymphadenopathy - Respiratory Exam Respiratory Exam: Decreased Breath Sounds - Cardiovascular Exam Cardiovascular Exam: REGULAR RHYTHM, +S1, +S2 - GI/Abdominal Exam GI & Abdominal Exam: Diminished Bowel Sounds, Soft. absent: Tenderness - Rectal Exam Rectal Exam: Deferred - Exam Exam: NORMAL INSPECTION - Extremities Exam Extremities exam: Positive for: pedal pulses present. Negative for: calf tenderness, pedal edema, tenderness - Back Exam Back exam: CVA tenderness (L). absent: CVA tenderness (R), paraspinal tenderness - Neurological Exam Neurological exam: Alert, CN II-XII Intact, Oriented x3, Reflexes Normal - Psychiatric Exam Psychiatric exam: Normal Mood - Skin Skin Exam: Dry Results - Vital Signs Recent Vital Signs: Last Vital Signs Temp 98.4 F 06/10/17 16:30 Pulse 103 H 06/10/17 16:30 Resp 20 06/10/17 16:30 BP 131/70 06/10/17 16:30 Pulse Ox 100 06/10/17 16:30 - Labs Result Diagrams: 06/10/17 07:54 06/10/17 07:54 Labs: Laboratory Results - last 24 hr 06/09/17 06/09/17 06/09/17 18:17 18:17 18:39 WBC 13.8 H RBC 4.29 Hgb 12.4 Hct 36.6 MCV 85.4 D MCH 28.9 MCHC 33.8 RDW 12.9 Plt Count 213 MPV 9.1 Neut % (Auto) 84.3 H Lymph % (Auto) 10.3 L [place] % (Auto) 4.9 Eos % (Auto) 0.3 Baso % (Auto) 0.2 Neut # 11.6 H Lymph # 1.4 [place] # 0.7 Eos # 0.0 Baso # 0.0 Neutrophils % (Manual) Band Neutrophils % Lymphocytes % (Manual) Monocytes % (Manual) Platelet Estimate Large Platelets Giant Platelets Polychromasia Hypochromasia (manual) Poikilocytosis (manual Anisocytosis (manual) Ovalocytes [place] Cells Sodium 130 L Potassium 3.9 Chloride 98 Carbon Dioxide 21 L Anion Gap 15 BUN 12 Creatinine 1.0 Est GFR ( Amer) > 60 Est GFR (Non-Af Amer) 55 POC Glucose (mg/dL) Random Glucose 144 H Calcium 9.1 Total Bilirubin 0.9 AST 26 ALT 34 Alkaline Phosphatase 122 Total Protein 7.6 Albumin 3.6 Globulin 4.0 H Albumin/Globulin Ratio 0.9 L Lipase 35 Urine Color Yellow Urine Clarity Slight-cloudy Urine pH 6.0 Ur Specific [place] 1.020 Urine Protein 100 Urine Glucose (UA) Negative Urine Ketones 40 Urine Blood Large Urine Nitrate Negative Urine Bilirubin Negative Urine Urobilinogen N Ur Leukocyte Esterase Large Urine WBC (Auto) 25 H Urine RBC (Auto) 10 H Ur Squamous Epith Cells 12 H Amorphous Sediment Urine Bacteria Mod H Influenza Typ A,B (EIA) 06/09/17 06/10/17 06/10/17 19:08 01:52 07:54 WBC 18.9 H RBC 3.98 Hgb 11.6 Hct 34.3 MCV 86.2 MCH 29.1 MCHC 33.7 RDW 12.7 Plt Count 191 MPV 9.3 Neut % (Auto) 88.7 H Lymph % (Auto) 5.8 L [place] % (Auto) 5.4 Eos % (Auto) 0.0 Baso % (Auto) 0.1 Neut # 16.8 H Lymph # 1.1 [place] # 1.0 H Eos # 0.0 Baso # 0.0 Neutrophils % (Manual) 72 Band Neutrophils % 19 H* Lymphocytes % (Manual) 5 L Monocytes % (Manual) 4 Platelet Estimate Normal Large Platelets Present Giant Platelets Present Polychromasia Slight Hypochromasia (manual) Slight Poikilocytosis (manual Slight Anisocytosis (manual) Slight Ovalocytes Slight [place] Cells Slight Sodium Potassium Chloride Carbon Dioxide Anion Gap BUN Creatinine Est GFR ( Amer) Est GFR (Non-Af Amer) POC Glucose (mg/dL) 191 H Random Glucose Calcium Total Bilirubin AST ALT Alkaline Phosphatase Total Protein Albumin Globulin Albumin/Globulin Ratio Lipase Urine Color Urine Clarity Urine pH Ur Specific [place] Urine Protein Urine Glucose (UA) Urine Ketones Urine Blood Urine Nitrate Urine Bilirubin Urine Urobilinogen Ur Leukocyte Esterase Urine WBC (Auto) Urine RBC (Auto) Ur Squamous Epith Cells Amorphous Sediment Urine Bacteria Influenza Typ A,B (EIA) Negative for flu a/b 06/10/17 06/10/17 06/10/17 07:54 08:00 08:55 WBC RBC Hgb Hct MCV MCH MCHC RDW Plt Count MPV Neut % (Auto) Lymph % (Auto) [place] % (Auto) Eos % (Auto) Baso % (Auto) Neut # Lymph # [place] # Eos # Baso # Neutrophils % (Manual) Band Neutrophils % Lymphocytes % (Manual) Monocytes % (Manual) Platelet Estimate Large Platelets Giant Platelets Polychromasia Hypochromasia (manual) Poikilocytosis (manual Anisocytosis (manual) Ovalocytes [place] Cells Sodium 130 L Potassium 3.4 L Chloride 99 Carbon Dioxide 19 L Anion Gap 15 BUN 14 Creatinine 1.1 Est GFR ( Amer) 60 Est GFR (Non-Af Amer) 49 POC Glucose (mg/dL) 207 H Random Glucose 179 H Calcium 8.3 L Total Bilirubin 0.5 AST 20 ALT 32 Alkaline Phosphatase 111 Total Protein 6.4 Albumin 3.0 L Globulin 3.4 Albumin/Globulin Ratio 0.9 L Lipase Urine Color [place] Urine Clarity Hazy Urine pH 5.0 Ur Specific [place] 1.045 H Urine Protein 2+ H Urine Glucose (UA) Normal Urine Ketones Negative Urine Blood 1+ H Urine Nitrate Negative Urine Bilirubin Negative Urine Urobilinogen Normal Ur Leukocyte Esterase 3+ H Urine WBC (Auto) 169 H Urine RBC (Auto) 28 H Ur Squamous Epith Cells 23 H Amorphous Sediment Occ H Urine Bacteria Few H Influenza Typ A,B (EIA) 06/10/17 06/10/17 11:04 16:41 WBC RBC Hgb Hct MCV MCH MCHC RDW Plt Count MPV Neut % (Auto) Lymph % (Auto) [place] % (Auto) Eos % (Auto) Baso % (Auto) Neut # Lymph # [place] # Eos # Baso # Neutrophils % (Manual) Band Neutrophils % Lymphocytes % (Manual) Monocytes % (Manual) Platelet Estimate Large Platelets Giant Platelets Polychromasia Hypochromasia (manual) Poikilocytosis (manual Anisocytosis (manual) Ovalocytes [place] Cells Sodium Potassium Chloride Carbon Dioxide Anion Gap BUN Creatinine Est GFR ( Amer) Est GFR (Non-Af Amer) POC Glucose (mg/dL) 272 H 157 H Random Glucose Calcium Total Bilirubin AST ALT Alkaline Phosphatase Total Protein Albumin Globulin Albumin/Globulin Ratio Lipase Urine Color Urine Clarity Urine pH Ur Specific [place] Urine Protein Urine Glucose (UA) Urine Ketones Urine Blood Urine Nitrate Urine Bilirubin Urine Urobilinogen Ur Leukocyte Esterase Urine WBC (Auto) Urine RBC (Auto) Ur Squamous Epith Cells Amorphous Sediment Urine Bacteria Influenza Typ A,B (EIA) Assessment & Plan (1) Abdominal pain Status: Acute (2) Pyelonephritis, acute Status: Acute - Assessment and Plan (Free Text) Assessment: gram neg sepsis/ pyelonephritis in a 67 yo female with hx DM started on empiric IV antibiotics IF no improvement in 24 h may need to empirically cover for MDRO Plan: infiltrates on cxr noted- recc folow up films , cultures
[2017-06-10] MEDS: Saccharomyces Boulardi 250 mg Cap PO SCH (18:19)
[2017-06-10] MEDS: Azithromycin 500 MG in Sodium Chloride 0.9% 250 ML IVPB SCH (18:20)
[2017-06-10] MEDS: Meropenem 500 MG in Sodium Chloride 0.9% 100 ML IVPB SCH (21:04)
[2017-06-10] MEDS ORDERED: Meropenem 1 GM in Sodium Chloride 0.9% 100 ML IVPB SCH (22:00)
[2017-06-11] MEDS: Meropenem 500 MG in Sodium Chloride 0.9% 100 ML IVPB SCH ×3 (06:02→21:10)
[2017-06-11] MEDS: Sodium Chloride 0.9% 1,000 ML IV SCH ×2 (06:31→19:55)
[2017-06-11 06:41] LABS: CHLORIDE 102 mmol/L (98-107)
[2017-06-11 06:42] LABS: POTASSIUM 3.9 mmol/L (3.6-5.2); SODIUM 133 mmol/L (132-148)
[2017-06-11 06:44] LABS: ALB/GLOB RATIO 0.8 (1.0-2.1); BILIRUBIN,TOTAL 0.4 mg/dL (0.2-1.3); CARBON DIOXIDE 19 mmol/L (22-30); CHOLESTEROL 91 mg/dL (0-199); GFR AFRICAN-AMERICAN > 60; TOTAL PROTEIN 6.6 g/dL (6.3-8.3)
[2017-06-11 06:45] LABS: ALKALINE PHOSPHATASE 108 U/L (38-126); ALT/SGPT 38 U/L (9-52); AST/SGOT 27 U/L (14-36); BASO % 0.2 % (0.0-2.0); BLOOD UREA NITROGEN 14 mg/dL (7-17); CALCIUM 8.2 mg/dl (8.6-10.4); GLUCOSE,RANDOM 172 mg/dL (65-105); HEMATOCRIT 35.3 % (34.0-47.0); LYMPH # 1.1 K/uL (1.0-4.3); LYMPH % 9.5 % (20.0-40.0); MEAN CELL VOLUME 86.1 fL (81.0-99.0); MEAN CORPUSCULAR HEMOGLOBIN 28.9 pg (27.0-31.0); MEAN CORPUSCULAR HGB CONC 33.6 g/dL (33.0-37.0); MEAN PLATELET VOLUME 9.5 fL (7.2-11.7); MONO # 0.4 K/uL (0.0-0.8); PLATELET COUNT 194 K/uL (130-400); RED CELL DISTRIBUTION WIDTH 13.3 % (11.5-14.5); WHITE BLOOD COUNT 11.7 K/uL (4.8-10.8)
[2017-06-11 07:16] LABS: THYROID STIMULATING HORMONE 0.52 mIU/L (0.46-4.68)
[2017-06-11] MEDS: (Novolog) Insulin Aspart, Recombinant 100 u/ml 10 ml vial SC SCH ×4 (07:45→21:18)
[2017-06-11 09:00] LABS: BASOPHIL 1 % (0-2); LARGE PLATELETS PRESENT; NEUTROPHIL 74 % (50-75); TOTAL CELLS COUNTED 100
[2017-06-11] MEDS: Saccharomyces Boulardi 250 mg Cap PO SCH ×2 (09:29→17:28)
[2017-06-11 11:32] LABS: H INFLUENZAE B NOT REQUIRED (NEGATIVE); N MENINGITIS ACY/W135 NOT REQUIRED (NEGATIVE); N MENINGITIS B/ECOLI K1 NOT REQUIRED (NEGATIVE)
--- NOTE | 2017-06-11 11:55 | CP.PCM.PN ---
<VijiParvin - Last Filed: 06/11/17 14:39> Subjective - Date & Time of Evaluation Date of Evaluation: 06/11/17 Time of Evaluation: 08:00 - Subjective Subjective: Internal Medicine Progress Note Patient seen and examined at bedside. family at bedside. Patient states she's feeling a little better, but is urinating a lot. Patient admits to being cold. it was explained to patient and family that patient has infection in her kidneys and the blood. Her sugar levels are also high. Patient admits to a small headache. Patient denies fever, chills, nausea, vomiting, diarrhea. Patient states she is urinating a lot. Nurse mentioned sedimentation found in urine today. Objective - Vital Signs/Intake and Output Vital Signs (last 24 hours): Temp Pulse Resp BP Pulse Ox 98.5 F 108 H 20 127/77 100 06/11/17 08:23 06/11/17 08:23 06/11/17 08:23 06/11/17 08:23 06/11/17 08:23 Intake and Output: 06/11/17 06/11/17 06:59 18:59 Intake Total 2650 Balance 2650 - Medications Medications: Current Medications Acetaminophen (Tylenol 325mg Tab) 650 mg PO Q6 PRN PRN Reason: fever or pain Last Admin: 06/11/17 06:17 Dose: 650 mg Dextrose (Dextrose 50% Inj) 0 ml IVP .STAT PRN; Protocol PRN Reason: Hypoglycemia Protocol Dextrose (Glutose 15) 0 gm PO .ONCE PRN; Protocol PRN Reason: Hypoglycemia Protocol Enalapril Maleate (Vasotec) 5 mg PO DAILY [facility] Last Admin: 06/10/17 09:12 Dose: Not Given Ergocalciferol (Drisdol 50,000 Intl Units Cap) 1 cap PO QWK [facility] Last Admin: 06/10/17 09:11 Dose: 1 cap Famotidine (Pepcid) 20 mg PO DAILY [facility] Last Admin: 06/11/17 09:29 Dose: 20 mg Glimepiride (Amaryl) 2 mg PO DAILY [facility] Last Admin: 06/11/17 09:29 Dose: 2 mg Glucagon (Glucagen Diagnostic Kit) 0 mg IM .STAT PRN; Protocol PRN Reason: Hypoglycemia Protocol Heparin Sodium (Porcine) (Heparin) 5,000 units SC Q8 [facility] Last Admin: 06/11/17 06:20 Dose: 5,000 units Dextrose (Dextrose 5% In Water 1000 Ml) 1,000 mls @ 0 mls/hr IV .Q0M PRN; Protocol; Per Protocol PRN Reason: Hypoglycemia Protocol Sodium Chloride (Sodium Chloride 0.9%) 1,000 mls @ 150 mls/hr IV .Q6H40M [facility] Last Admin: 06/11/17 06:31 Dose: 150 mls/hr Azithromycin 500 mg/ Sodium (Chloride) 250 mls @ 250 mls/hr IVPB Q24H [facility] Last Admin: 06/10/17 18:20 Dose: 250 mls/hr Meropenem 500 mg/ Sodium (Chloride) 100 mls @ 200 mls/hr IVPB Q8 [facility] Last Admin: 06/11/17 06:02 Dose: 200 mls/hr Insulin Aspart (Novolog) 0 unit SC ACHS [facility] PRN Reason: Protocol Last Admin: 06/11/17 07:45 Dose: 3 unit Insulin Glargine (Lantus) 10 unit SC [facility] Ondansetron HCl (Zofran Inj) 4 mg IVP Q6H PRN PRN Reason: Nausea/Vomiting Last Admin: 06/10/17 18:27 Dose: 4 mg Rosuvastatin Calcium (Crestor) 10 mg PO HS [facility] Last Admin: 06/10/17 21:07 Dose: 10 mg Saccharomyces Boulardii (Florastor) 250 mg PO BID [facility] Last Admin: 06/11/17 09:29 Dose: 250 mg - Labs Labs: 06/11/17 06:25 06/11/17 06:25 - Constitutional Appears: Non-toxic - Head Exam Head Exam: NORMAL INSPECTION - Eye Exam Eye Exam: EOMI, Normal appearance - ENT Exam ENT Exam: Mucous Membranes Moist - Neck Exam Neck Exam: Full ROM, Normal Inspection - Respiratory Exam Respiratory Exam: NORMAL BREATHING PATTERN. absent: Accessory Muscle Use, Respiratory Distress - Cardiovascular Exam Cardiovascular Exam: Tachycardia, REGULAR RHYTHM, +S1, +S2 - GI/Abdominal Exam GI & Abdominal Exam: Soft, Normal Bowel Sounds. absent: Tenderness - Extremities Exam Extremities Exam: Full ROM, Normal Inspection. absent: Pedal Edema - Neurological Exam Neurological Exam: Alert, Awake - Psychiatric Exam Psychiatric exam: Normal Affect, Normal Mood - Skin Skin Exam: Dry, Normal Color, Warm Assessment and Plan - Assessment and Plan (Free Text) Assessment: 67F gram negative sepsis/pyelonephritis CXR A/P: Right lung infiltrate CXR- right middle lobe infiltrate, consider pneumonia (see full report) f/u mycoplasma, procalcitonin, legionella, strep pneumo S. pneumoniae antigen negative Urine Legionella pneumophila Antigen negative Start Azithromycin 500mg IV q24h Hyponatremia Na+ 130 f/u TSH, T4 f/u lipid panel 10 AM cortisol 16.3 T4 1.47, TSH 0.52 06/10 Urine Osm 331 06/10 Urine Random Sodium 66 Diarrhea negative C diff Ag and toxin stool leukocytes pending giardia pending electrolytes Pyelonephritis 2/2 UTI, history of ESBL + UTI in the past Abd/Pelvis CT w/PO & IV contrast - edema and fat stranding seen surrounding left kidney, suggestive of pyelonephritis. Leukocytosis- WBC increased to 18.9 with left shift and 19 bands on Admission Temp 100.1 oral in ED Afebrile over 24hours (and since admission) UA - large blood, large leukocyte esterase, bacteria mod - EPITH CELLS = 12 06/10 Repeat UA has more blood and more epithelial cells 06/10 Dr. Rao ID consult added Merrem 06/10 due to history of ESBL positive UTI in the past, there is a concern for Multi-drug resistant organism if no improvement 06/09 Urine culture: gram negative rods 06/09 Blood culture: gram negative rods Rocephin 1 gm IVPB daily switched to Merrem per Dr. Rao 06/10 Tylenol 650mg PO Q6 PRN for fever/pain Diabetes, uncontrolled Accuchecks ISS Novolog Lantus 10units QHS added for uncontrolled diabetes Held home Metformin 1000mg PO BID Enalapril 5mg PO daily Hypotension, secondary to sepsis Patient hypotensive today- given 1L bolus NS in AM and started IVF NS @150cc/hr BP currently stable and patient asymptomatic. Monitor vitals Q4H. f/u lactic acid Hypercholesterolemia Crestor 10mg PO HS Osteoporosis Vitamin D3 2,000u PO daily Prophylaxis SCDs Heparin 5,000 units SC Q8 Pepcid 20mg POQD Discuss with Dr. Tangela Hallman, DO PGY1 <Santa Honeycutt V - Last Filed: 06/11/17 15:01> Objective - Vital Signs/Intake and Output Vital Signs (last 24 hours): Temp Pulse Resp BP Pulse Ox 98.9 F 99 H 20 127/77 100 06/11/17 12:24 06/11/17 12:24 06/11/17 08:23 06/11/17 08:23 06/11/17 08:23 Intake and Output: 06/11/17 06/11/17 06:59 18:59 Intake Total 2650 Balance 2650 - Medications Medications: Current Medications Acetaminophen (Tylenol 325mg Tab) 650 mg PO Q6 PRN PRN Reason: fever or pain Last Admin: 06/11/17 06:17 Dose: 650 mg Dextrose (Dextrose 50% Inj) 0 ml IVP .STAT PRN; Protocol PRN Reason: Hypoglycemia Protocol Dextrose (Glutose 15) 0 gm PO .ONCE PRN; Protocol PRN Reason: Hypoglycemia Protocol Enalapril Maleate (Vasotec) 5 mg PO DAILY [facility] Last Admin: 06/10/17 09:12 Dose: Not Given Ergocalciferol (Drisdol 50,000 Intl Units Cap) 1 cap PO QWK [facility] Last Admin: 06/10/17 09:11 Dose: 1 cap Famotidine (Pepcid) 20 mg PO DAILY [facility] Last Admin: 06/11/17 09:29 Dose: 20 mg Glimepiride (Amaryl) 2 mg PO DAILY [facility] Last Admin: 06/11/17 09:29 Dose: 2 mg Glucagon (Glucagen Diagnostic Kit) 0 mg IM .STAT PRN; Protocol PRN Reason: Hypoglycemia Protocol Heparin Sodium (Porcine) (Heparin) 5,000 units SC Q8 [facility] Last Admin: 06/11/17 14:37 Dose: 5,000 units Dextrose (Dextrose 5% In Water 1000 Ml) 1,000 mls @ 0 mls/hr IV .Q0M PRN; Protocol; Per Protocol PRN Reason: Hypoglycemia Protocol Sodium Chloride (Sodium Chloride 0.9%) 1,000 mls @ 150 mls/hr IV .Q6H40M [facility] Last Admin: 06/11/17 06:31 Dose: 150 mls/hr Azithromycin 500 mg/ Sodium (Chloride) 250 mls @ 250 mls/hr IVPB Q24H [facility] Last Admin: 06/10/17 18:20 Dose: 250 mls/hr Meropenem 500 mg/ Sodium (Chloride) 100 mls @ 200 mls/hr IVPB Q8 [facility] Last Admin: 06/11/17 14:00 Dose: 200 mls/hr Insulin Aspart (Novolog) 0 unit SC ACHS [facility] PRN Reason: Protocol Last Admin: 06/11/17 12:27 Dose: 1 unit Insulin Glargine (Lantus) 10 unit SC HS [facility] Ondansetron HCl (Zofran Inj) 4 mg IVP Q6H PRN PRN Reason: Nausea/Vomiting Last Admin: 06/10/17 18:27 Dose: 4 mg Rosuvastatin Calcium (Crestor) 10 mg PO HS [facility] Last Admin: 06/10/17 21:07 Dose: 10 mg Saccharomyces Boulardii (Florastor) 250 mg PO BID [facility] Last Admin: 06/11/17 09:29 Dose: 250 mg - Labs Labs: 06/11/17 06:25 06/11/17 06:25 Attending/Attestation - Attestation I have personally seen and examined this patient.: Yes I have fully participated in the care of the patient.: Yes I have reviewed all pertinent clinical information, including history, physical exam and plan: Yes Notes (Text): Patient seen, examined, and case discussed with day-time resident. Pending results of urine and blood cultures. Patient is currently on IV abx. Patient is uncontrolled diabetes. Started on Lantus 10 units subqHS and diet adjusted to reflect her diabetes. Assessment/Plan 1) Sepsis Bacteremia Pyelonephritis Pneumonia * Criteria: white count, tachycardia, source of infection: pyelonephritis, bacteremia, urinary tract infection, pneumonia * Infectious Disease (Dr. Rao) on the case * Azithromycin 500mg IV Q daily (active since 06/10/17) * Meropenem 500mg IV Q 8 Hour (active since 06/10/17) * Florastor 250mg PO BID * CT Abdomen/Pelvis (06/10/17): patchy and striated nephrogram of the left kidney asociated with mildly dilated collecting system diffuse wall thickening and also associated w moderate perinephric stranding. Acute pyelnonephritis. Mild urinary bladder wall thickening. * Blood culture (06/09/17): Gram negative JEROME X2 * Urine culture (06/09/17: Gram negative JEROME X2 * Negative: Strep pneumoniae * Negative: Legionella * pending Mycoplasma * prior Hx of ESBL 2) Hyponatremia * Na+ 130 * TSH: 0.52 Free T4: 1.47 * T, Chol: 91, LDL: 43, HDL: 20 3) Diarrhea * Denies today * negative C diff Ag and toxin * stool leukocytes pending * giardia pending 4)Diabetes, uncontrolled * HgbA1c: 9.4 * Accuchecks QAC and HS * Novolog ISS * Lantus 10units QHS added for uncontrolled diabetes * Glimepiride 2mg PO daily * Held home Metformin 1000mg PO BID * Enalapril 5mg PO daily 5) Hypercholesterolemia * Crestor 10mg PO HS * T, Chol: 91, LDL: 43, HDL: 20 6) Osteoporosis * Vitamin D3 2,000u PO daily 7) Prophylaxis * SCDs * Heparin 5,000 units SC Q8 * Pepcid 20mg POQD
--- NOTE | 2017-06-11 15:59 | CP.PCM.PN ---
Subjective - Date & Time of Evaluation Date of Evaluation: 06/11/17 Time of Evaluation: 09:00 - Subjective Subjective: gram neg rods in blood urine wbc trending down nad Objective - Vital Signs/Intake and Output Vital Signs (last 24 hours): Temp Pulse Resp BP Pulse Ox 98.9 F 99 H 20 127/77 100 06/11/17 12:24 06/11/17 12:24 06/11/17 08:23 06/11/17 08:23 06/11/17 08:23 Intake and Output: 06/11/17 06/11/17 06:59 18:59 Intake Total 2650 Balance 2650 - Medications Medications: Current Medications Acetaminophen (Tylenol 325mg Tab) 650 mg PO Q6 PRN PRN Reason: fever or pain Last Admin: 06/11/17 15:49 Dose: 650 mg Dextrose (Dextrose 50% Inj) 0 ml IVP .STAT PRN; Protocol PRN Reason: Hypoglycemia Protocol Dextrose (Glutose 15) 0 gm PO .ONCE PRN; Protocol PRN Reason: Hypoglycemia Protocol Enalapril Maleate (Vasotec) 5 mg PO DAILY [facility] Last Admin: 06/10/17 09:12 Dose: Not Given Ergocalciferol (Drisdol 50,000 Intl Units Cap) 1 cap PO QWK [facility] Last Admin: 06/10/17 09:11 Dose: 1 cap Famotidine (Pepcid) 20 mg PO DAILY [facility] Last Admin: 06/11/17 09:29 Dose: 20 mg Glimepiride (Amaryl) 2 mg PO DAILY [facility] Last Admin: 06/11/17 09:29 Dose: 2 mg Glucagon (Glucagen Diagnostic Kit) 0 mg IM .STAT PRN; Protocol PRN Reason: Hypoglycemia Protocol Heparin Sodium (Porcine) (Heparin) 5,000 units SC Q8 [facility] Last Admin: 06/11/17 14:37 Dose: 5,000 units Dextrose (Dextrose 5% In Water 1000 Ml) 1,000 mls @ 0 mls/hr IV .Q0M PRN; Protocol; Per Protocol PRN Reason: Hypoglycemia Protocol Sodium Chloride (Sodium Chloride 0.9%) 1,000 mls @ 150 mls/hr IV .Q6H40M [facility] Last Admin: 06/11/17 06:31 Dose: 150 mls/hr Azithromycin 500 mg/ Sodium (Chloride) 250 mls @ 250 mls/hr IVPB Q24H [facility] Last Admin: 06/10/17 18:20 Dose: 250 mls/hr Meropenem 500 mg/ Sodium (Chloride) 100 mls @ 200 mls/hr IVPB Q8 [facility] Last Admin: 06/11/17 14:00 Dose: 200 mls/hr Insulin Aspart (Novolog) 0 unit SC ACHS [facility] PRN Reason: Protocol Last Admin: 06/11/17 12:27 Dose: 1 unit Insulin Glargine (Lantus) 10 unit SC HS [facility] Ondansetron HCl (Zofran Inj) 4 mg IVP Q6H PRN PRN Reason: Nausea/Vomiting Last Admin: 06/10/17 18:27 Dose: 4 mg Rosuvastatin Calcium (Crestor) 10 mg PO HS [facility] Last Admin: 06/10/17 21:07 Dose: 10 mg Saccharomyces Boulardii (Florastor) 250 mg PO BID [facility] Last Admin: 06/11/17 09:29 Dose: 250 mg - Labs Labs: 06/11/17 06:25 06/11/17 06:25 - Constitutional Appears: Chronically Ill - Head Exam Head Exam: NORMOCEPHALIC - Eye Exam Eye Exam: Normal appearance - ENT Exam ENT Exam: Mucous Membranes Dry, Normal External Ear Exam - Neck Exam Neck Exam: absent: Lymphadenopathy - Respiratory Exam Respiratory Exam: Decreased Breath Sounds - Cardiovascular Exam Cardiovascular Exam: REGULAR RHYTHM - GI/Abdominal Exam GI & Abdominal Exam: Distended, Soft - Rectal Exam Rectal Exam: Deferred Assessment and Plan (1) Abdominal pain Status: Acute (2) Pyelonephritis, acute Status: Acute - Assessment and Plan (Free Text) Assessment: cont rx gram neg sepsis consider eval IV / PO rx for min 14 days await final culture
[2017-06-11] MEDS: Azithromycin 500 MG in Sodium Chloride 0.9% 250 ML IVPB SCH (18:00)
[2017-06-11] MEDS: (Lantus) Insulin Glargine, Recombinant SC SCH (21:22)
[2017-06-12] MEDS: Sodium Chloride 0.9% 1,000 ML IV SCH ×3 (02:55→21:35)
[2017-06-12] MEDS: Meropenem 500 MG in Sodium Chloride 0.9% 100 ML IVPB SCH (06:02)
[2017-06-12 07:34] LABS: BASO % 0.3 % (0.0-2.0); EOS % 0.3 % (0.0-4.0); HEMATOCRIT 32.3 % (34.0-47.0); LYMPH # 1.3 K/uL (1.0-4.3); LYMPH % 22.6 % (20.0-40.0); MEAN CELL VOLUME 85.8 fL (81.0-99.0); MEAN CORPUSCULAR HEMOGLOBIN 29.3 pg (27.0-31.0); MEAN CORPUSCULAR HGB CONC 34.1 g/dL (33.0-37.0); MEAN PLATELET VOLUME 9.1 fL (7.2-11.7); MONO # 0.4 K/uL (0.0-0.8); MONO % 7.2 % (0.0-10.0); RED CELL DISTRIBUTION WIDTH 13.4 % (11.5-14.5); WHITE BLOOD COUNT 5.9 K/uL (4.8-10.8)
[2017-06-12 07:44] LABS: CHLORIDE 104 mmol/L (98-107); SODIUM 133 mmol/L (132-148)
[2017-06-12 07:45] LABS: POTASSIUM 3.2 mmol/L (3.6-5.2)
[2017-06-12 07:47] LABS: ALB/GLOB RATIO 0.8 (1.0-2.1); ALKALINE PHOSPHATASE 102 U/L (38-126); AST/SGOT 50 U/L (14-36); BILIRUBIN,TOTAL 0.3 mg/dL (0.2-1.3); BLOOD UREA NITROGEN 8 mg/dL (7-17); CARBON DIOXIDE 19 mmol/L (22-30); GFR AFRICAN-AMERICAN > 60; TOTAL PROTEIN 6.3 g/dL (6.3-8.3)
[2017-06-12 07:48] LABS: ALT/SGPT 50 U/L (9-52); CALCIUM 8.2 mg/dl (8.6-10.4); GLUCOSE,RANDOM 132 mg/dL (65-105)
[2017-06-12] MEDS: (Novolog) Insulin Aspart, Recombinant 100 u/ml 10 ml vial SC SCH ×4 (08:30→21:47)
[2017-06-12] MEDS: Saccharomyces Boulardi 250 mg Cap PO SCH ×2 (10:23→17:39)
--- NOTE | 2017-06-12 10:26 | CP.PCM.PN ---
Subjective - Date & Time of Evaluation Date of Evaluation: 06/12/17 Time of Evaluation: 10:00 - Subjective Subjective: blood c/s + ecoli uriostegui sensitive Rocephin added Objective - Vital Signs/Intake and Output Vital Signs (last 24 hours): Temp Pulse Resp BP Pulse Ox 97.8 F 83 20 126/79 97 06/12/17 09:03 06/12/17 09:03 06/12/17 09:03 06/12/17 09:03 06/12/17 09:03 Intake and Output: 06/12/17 06/12/17 06:59 18:59 Intake Total 1450 Balance 1450 - Medications Medications: Current Medications Acetaminophen (Tylenol 325mg Tab) 650 mg PO Q6 PRN PRN Reason: fever or pain Last Admin: 06/12/17 04:12 Dose: 650 mg Dextrose (Dextrose 50% Inj) 0 ml IVP .STAT PRN; Protocol PRN Reason: Hypoglycemia Protocol Dextrose (Glutose 15) 0 gm PO .ONCE PRN; Protocol PRN Reason: Hypoglycemia Protocol Enalapril Maleate (Vasotec) 5 mg PO DAILY [facility] Last Admin: 06/10/17 09:12 Dose: Not Given Ergocalciferol (Drisdol 50,000 Intl Units Cap) 1 cap PO QWK [facility] Last Admin: 06/10/17 09:11 Dose: 1 cap Famotidine (Pepcid) 20 mg PO DAILY [facility] Last Admin: 06/11/17 09:29 Dose: 20 mg Glimepiride (Amaryl) 2 mg PO DAILY [facility] Last Admin: 06/11/17 09:29 Dose: 2 mg Glucagon (Glucagen Diagnostic Kit) 0 mg IM .STAT PRN; Protocol PRN Reason: Hypoglycemia Protocol Heparin Sodium (Porcine) (Heparin) 5,000 units SC Q8 [facility] Last Admin: 06/12/17 06:01 Dose: 5,000 units Dextrose (Dextrose 5% In Water 1000 Ml) 1,000 mls @ 0 mls/hr IV .Q0M PRN; Protocol; Per Protocol PRN Reason: Hypoglycemia Protocol Sodium Chloride (Sodium Chloride 0.9%) 1,000 mls @ 150 mls/hr IV .Q6H40M [facility] Last Admin: 06/12/17 02:55 Dose: 150 mls/hr Azithromycin 500 mg/ Sodium (Chloride) 250 mls @ 250 mls/hr IVPB Q24H [facility] Last Admin: 06/11/17 18:00 Dose: 250 mls/hr Potassium Chloride (Potassium Chloride 20 Meq/100 Ml) 20 meq in 100 mls @ 50 mls/hr IVPB Q4H [facility] Stop: 06/12/17 16:14 Insulin Aspart (Novolog) 0 unit SC ACHS [facility] PRN Reason: Protocol Last Admin: 06/12/17 08:30 Dose: 1 unit Insulin Glargine (Lantus) 10 unit SC [facility] Last Admin: 06/11/17 21:22 Dose: 10 u Ondansetron HCl (Zofran Inj) 4 mg IVP Q6H PRN PRN Reason: Nausea/Vomiting Last Admin: 06/10/17 18:27 Dose: 4 mg Rosuvastatin Calcium (Crestor) 10 mg PO HS [facility] Last Admin: 06/11/17 21:12 Dose: 10 mg Saccharomyces Boulardii (Florastor) 250 mg PO BID [facility] Last Admin: 06/11/17 17:28 Dose: 250 mg - Labs Labs: 06/12/17 07:16 06/12/17 07:16 - Constitutional Appears: Non-toxic, Chronically Ill - Head Exam Head Exam: NORMOCEPHALIC - Eye Exam Eye Exam: PERRL - ENT Exam ENT Exam: Mucous Membranes Dry - Neck Exam Neck Exam: absent: Lymphadenopathy - Respiratory Exam Respiratory Exam: Decreased Breath Sounds - Cardiovascular Exam Cardiovascular Exam: REGULAR RHYTHM Assessment and Plan (1) Abdominal pain Status: Acute (2) Pyelonephritis, acute Status: Acute
[2017-06-12] MEDS ORDERED: cefTRIAXone 2 GM in Sodium Chloride 0.9% 100 ML IVPB SCH (10:45)
[2017-06-12] MEDS: cefTRIAXone 2 GM in Sodium Chloride 0.9% 100 ML IVPB SCH (12:16)
[2017-06-12 14:10] LABS: URINE BILIRUBIN NEGATIVE (NEGATIVE); URINE BLOOD 1+ (NEGATIVE); URINE COLOR Colorless (YELLOW); URINE GLUCOSE (UA) 2+ mg/dL (Normal); URINE KETONE NEGATIVE (NEGATIVE); URINE LEUKOCYTE ESTERASE NEG Leu/uL (Negative); URINE PROTEIN NEGATIVE (NEGATIVE); URINE UROBILINOGEN NORMAL mg/dL (0.2-1.0); WBC URINE 3 /hpf (0-5)
--- NOTE | 2017-06-12 17:16 | CP.PCM.PN ---
<Parvin Hallman - Last Filed: 06/12/17 17:24> Subjective - Date & Time of Evaluation Date of Evaluation: 06/12/17 Time of Evaluation: 10:00 - Subjective Subjective: Internal Medicine Progress Note for Dr. Honeycutt Patient seen and examined at bedside. No acute events overnight. When visiting patient initially, patient did not have chills, when family members are around and with Dr. Honeycutt, patient is covered in many blankets and shivering. Patient states she still feels chills, cough and headache. Objective - Vital Signs/Intake and Output Vital Signs (last 24 hours): Temp Pulse Resp BP Pulse Ox 98.6 F 83 20 128/79 96 06/12/17 16:00 06/12/17 16:00 06/12/17 16:00 06/12/17 16:00 06/12/17 16:00 Intake and Output: 06/12/17 06/12/17 06:59 18:59 Intake Total 1450 Balance 1450 - Medications Medications: Current Medications Acetaminophen (Tylenol 325mg Tab) 650 mg PO Q6 PRN PRN Reason: fever or pain Last Admin: 06/12/17 11:31 Dose: 650 mg Dextrose (Dextrose 50% Inj) 0 ml IVP .STAT PRN; Protocol PRN Reason: Hypoglycemia Protocol Dextrose (Glutose 15) 0 gm PO .ONCE PRN; Protocol PRN Reason: Hypoglycemia Protocol Enalapril Maleate (Vasotec) 5 mg PO DAILY [facility] Last Admin: 06/10/17 09:12 Dose: Not Given Ergocalciferol (Drisdol 50,000 Intl Units Cap) 1 cap PO QWK [facility] Last Admin: 06/10/17 09:11 Dose: 1 cap Famotidine (Pepcid) 20 mg PO DAILY [facility] Last Admin: 06/12/17 10:23 Dose: 20 mg Glimepiride (Amaryl) 2 mg PO DAILY [facility] Last Admin: 06/12/17 10:23 Dose: 2 mg Glucagon (Glucagen Diagnostic Kit) 0 mg IM .STAT PRN; Protocol PRN Reason: Hypoglycemia Protocol Heparin Sodium (Porcine) (Heparin) 5,000 units SC Q8 [facility] Last Admin: 06/12/17 14:45 Dose: 5,000 units Dextrose (Dextrose 5% In Water 1000 Ml) 1,000 mls @ 0 mls/hr IV .Q0M PRN; Protocol; Per Protocol PRN Reason: Hypoglycemia Protocol Sodium Chloride (Sodium Chloride 0.9%) 1,000 mls @ 150 mls/hr IV .Q6H40M [facility] Last Admin: 06/12/17 12:15 Dose: 150 mls/hr Azithromycin 500 mg/ Sodium (Chloride) 250 mls @ 250 mls/hr IVPB Q24H [facility] Last Admin: 06/11/17 18:00 Dose: 250 mls/hr Ceftriaxone Sodium 2 gm/ (Sodium Chloride) 100 mls @ 200 mls/hr IVPB DAILY [facility] Last Admin: 06/12/17 12:16 Dose: 200 mls/hr Insulin Aspart (Novolog) 0 unit SC ACHS [facility] PRN Reason: Protocol Last Admin: 06/12/17 12:30 Dose: 2 unit Insulin Glargine (Lantus) 10 unit SC HS [facility] Last Admin: 06/11/17 21:22 Dose: 10 u Ondansetron HCl (Zofran Inj) 4 mg IVP Q6H PRN PRN Reason: Nausea/Vomiting Last Admin: 06/10/17 18:27 Dose: 4 mg Rosuvastatin Calcium (Crestor) 10 mg PO HS [facility] Last Admin: 06/11/17 21:12 Dose: 10 mg Saccharomyces Boulardii (Florastor) 250 mg PO BID [facility] Last Admin: 06/12/17 10:23 Dose: 250 mg - Labs Labs: 06/12/17 07:16 06/12/17 07:16 - Constitutional Appears: Non-toxic - Head Exam Head Exam: NORMAL INSPECTION - Eye Exam Eye Exam: EOMI, Normal appearance - ENT Exam ENT Exam: Mucous Membranes Moist - Neck Exam Neck Exam: Full ROM - Respiratory Exam Respiratory Exam: NORMAL BREATHING PATTERN. absent: Chest Wall Tenderness, Respiratory Distress - Cardiovascular Exam Cardiovascular Exam: REGULAR RHYTHM, +S1, +S2. absent: Tachycardia - GI/Abdominal Exam GI & Abdominal Exam: Soft, Tenderness (mild). absent: Guarding - Extremities Exam Extremities Exam: Full ROM - Back Exam Back Exam: CVA tenderness (L) - Neurological Exam Neurological Exam: Alert, Awake, Oriented x3 - Skin Skin Exam: Dry, Normal Color, Warm Assessment and Plan - Assessment and Plan (Free Text) Assessment: Assessment: 67F gram negative sepsis/pyelonephritis CXR A/P: Right lung infiltrate CXR- right middle lobe infiltrate, consider pneumonia (see full report) f/u mycoplasma, procalcitonin, legionella, strep pneumo S. pneumoniae antigen negative Urine Legionella pneumophila Antigen negative Patient is on Azithromycin 500mg IV q24h 06/12 Dr. Rao started patient on Rocephin 1 gm QD Hyponatremia Na+ 130 f/u TSH, T4 f/u lipid panel 06/11 AM cortisol 16.3 T4 1.47, TSH 0.52 06/10 Urine Osm 331 06/10 Urine Random Sodium 66 Diarrhea negative C diff Ag and toxin stool leukocytes pending giardia pending electrolytes Pyelonephritis 2/2 UTI, history of ESBL + UTI in the past Abd/Pelvis CT w/PO & IV contrast - edema and fat stranding seen surrounding left kidney, suggestive of pyelonephritis. Leukocytosis- WBC increased to 18.9 with left shift and 19 bands on Admission Temp 100.1 oral in ED Afebrile over 24hours (and since admission) UA - large blood, large leukocyte esterase, bacteria mod - EPITH CELLS = 12 06/10 Repeat UA has more blood and more epithelial cells 06/10 Dr. Rao ID consult added Merrem 06/10 due to history of ESBL positive UTI in the past, there is a concern for Multi-drug resistant organism if no improvement 06/09 Urine culture: gram negative rods 06/09 Blood culture: gram negative rods Rocephin 1 gm IVPB daily switched to Merrem per Dr. Rao 06/10 Tylenol 650mg PO Q6 PRN for fever/pain Diabetes, uncontrolled Accuchecks ISS Novolog Lantus 10units QHS added for uncontrolled diabetes Held home Metformin 1000mg PO BID Enalapril 5mg PO daily Hypotension, secondary to sepsis Patient hypotensive today- given 1L bolus NS in AM and started IVF NS @150cc/hr BP currently stable and patient asymptomatic. Monitor vitals Q4H. f/u lactic acid Hypercholesterolemia Crestor 10mg PO HS Osteoporosis Vitamin D3 2,000u PO daily Prophylaxis SCDs Heparin 5,000 units SC Q8 Pepcid 20mg POQD Discuss with Dr. Tangela Hallman, DO PGY1 <Santa Honeycutt V - Last Filed: 06/13/17 01:01> Objective - Vital Signs/Intake and Output Vital Signs (last 24 hours): Temp Pulse Resp BP Pulse Ox 98.9 F 90 20 150/83 97 06/12/17 23:28 06/12/17 23:28 06/12/17 23:28 06/12/17 23:28 06/12/17 23:28 Intake and Output: 06/12/17 06/13/17 18:59 06:59 Intake Total 1760 Balance 1760 - Medications Medications: Current Medications Acetaminophen (Tylenol 325mg Tab) 650 mg PO Q6 PRN PRN Reason: fever or pain Last Admin: 06/12/17 21:45 Dose: 650 mg Dextrose (Dextrose 50% Inj) 0 ml IVP .STAT PRN; Protocol PRN Reason: Hypoglycemia Protocol Dextrose (Glutose 15) 0 gm PO .ONCE PRN; Protocol PRN Reason: Hypoglycemia Protocol Enalapril Maleate (Vasotec) 5 mg PO DAILY [facility] Last Admin: 06/10/17 09:12 Dose: Not Given Ergocalciferol (Drisdol 50,000 Intl Units Cap) 1 cap PO QWK [facility] Last Admin: 06/10/17 09:11 Dose: 1 cap Famotidine (Pepcid) 20 mg PO DAILY [facility] Last Admin: 06/12/17 10:23 Dose: 20 mg Glimepiride (Amaryl) 2 mg PO DAILY [facility] Last Admin: 06/12/17 10:23 Dose: 2 mg Glucagon (Glucagen Diagnostic Kit) 0 mg IM .STAT PRN; Protocol PRN Reason: Hypoglycemia Protocol Heparin Sodium (Porcine) (Heparin) 5,000 units SC Q8 [facility] Last Admin: 06/12/17 21:36 Dose: 5,000 units Dextrose (Dextrose 5% In Water 1000 Ml) 1,000 mls @ 0 mls/hr IV .Q0M PRN; Protocol; Per Protocol PRN Reason: Hypoglycemia Protocol Sodium Chloride (Sodium Chloride 0.9%) 1,000 mls @ 150 mls/hr IV .Q6H40M [facility] Last Admin: 06/12/17 21:35 Dose: 150 mls/hr Azithromycin 500 mg/ Sodium (Chloride) 250 mls @ 250 mls/hr IVPB Q24H [facility] Last Admin: 06/12/17 17:39 Dose: 250 mls/hr Ceftriaxone Sodium 2 gm/ (Sodium Chloride) 100 mls @ 200 mls/hr IVPB DAILY [facility] Last Admin: 06/12/17 12:16 Dose: 200 mls/hr Insulin Aspart (Novolog) 0 unit SC ACHS [facility] PRN Reason: Protocol Last Admin: 06/12/17 21:47 Dose: Not Given Insulin Glargine (Lantus) 10 unit SC HS [facility] Last Admin: 06/12/17 21:36 Dose: 10 u Ondansetron HCl (Zofran Inj) 4 mg IVP Q6H PRN PRN Reason: Nausea/Vomiting Last Admin: 06/10/17 18:27 Dose: 4 mg Rosuvastatin Calcium (Crestor) 10 mg PO HS [facility] Last Admin: 06/12/17 21:35 Dose: 10 mg Saccharomyces Boulardii (Florastor) 250 mg PO BID [facility] Last Admin: 06/12/17 17:39 Dose: 250 mg - Labs Labs: 06/12/17 07:16 06/12/17 07:16 Attending/Attestation - Attestation I have personally seen and examined this patient.: Yes I have fully participated in the care of the patient.: Yes I have reviewed all pertinent clinical information, including history, physical exam and plan: Yes Notes (Text): This is late computer entry for 06/12/17. Patient seen, examined, and case discussed with day-time resident Patient reporting chills and shivers and requesting blankets at bedside. Patient continues to have body aches and pains. Discussed with ID, Rocephin added on today; recommended for eval; Tmax: 100.5F Ordered for repeat blood cultures today. White count has normalized today. Assessment/Plan 1) Sepsis Bacteremia Pyelonephritis Pneumonia * Criteria: white count, tachycardia, source of infection: pyelonephritis, bacteremia, urinary tract infection, pneumonia * Infectious Disease (Dr. Rao) on the case * Azithromycin 500mg IV Q daily (active since 06/10/17) * Meropenem 500mg IV Q 8 Hour (active since 06/10/17) * Rocephin 1 gram IV qdaily (active since 06/12/19) * Florastor 250mg PO BID * CT Abdomen/Pelvis (06/10/17): patchy and striated nephrogram of the left kidney asociated with mildly dilated collecting system diffuse wall thickening and also associated w moderate perinephric stranding. Acute pyelnonephritis. Mild urinary bladder wall thickening. * Blood culture (06/09/17): E. coli * Urine culture (06/09/17: E. coli * Blood culture (06/12/17): pending * Negative: Strep pneumoniae * Negative: Legionella * pending Mycoplasma * prior Hx of ESBL 2) Hyponatremia * Na+ 133 * TSH: 0.52 Free T4: 1.47 * T, Chol: 91, LDL: 43, HDL: 20 3) Diarrhea * Denies today * negative C diff Ag and toxin * stool leukocytes + * giardia pending 4)Diabetes, uncontrolled * HgbA1c: 9.4 * Accuchecks QAC and HS * Novolog ISS * Lantus 10units QHS added for uncontrolled diabetes * Glimepiride 2mg PO daily * Held home Metformin 1000mg PO BID * Enalapril 5mg PO daily 5) Hypercholesterolemia * Crestor 10mg PO HS * T, Chol: 91, LDL: 43, HDL: 20 6) Osteoporosis * Vitamin D3 2,000u PO daily 7) Hypokalemia * Replete 8) Prophylaxis * SCDs * Heparin 5,000 units SC Q8 * Pepcid 20mg POQdaily
[2017-06-12] MEDS: Azithromycin 500 MG in Sodium Chloride 0.9% 250 ML IVPB SCH (17:39)
[2017-06-12] MEDS: (Lantus) Insulin Glargine, Recombinant SC SCH (21:36)
[2017-06-13] MEDS: Sodium Chloride 0.9% 1,000 ML IV SCH ×4 (03:56→21:18)
[2017-06-13 06:47] LABS: BASO % 0.3 % (0.0-2.0); EOS # 0.1 K/uL (0.0-0.7); EOS % 1.1 % (0.0-4.0); HEMATOCRIT 37.3 % (34.0-47.0); LYMPH # 1.6 K/uL (1.0-4.3); LYMPH % 22.2 % (20.0-40.0); MEAN CELL VOLUME 85.4 fL (81.0-99.0); MEAN CORPUSCULAR HEMOGLOBIN 28.8 pg (27.0-31.0); MEAN CORPUSCULAR HGB CONC 33.7 g/dL (33.0-37.0); MEAN PLATELET VOLUME 9.3 fL (7.2-11.7); MONO # 0.7 K/uL (0.0-0.8); MONO % 9.2 % (0.0-10.0); RED CELL DISTRIBUTION WIDTH 13.6 % (11.5-14.5); WHITE BLOOD COUNT 7.3 K/uL (4.8-10.8)
[2017-06-13 06:58] LABS: CHLORIDE 103 mmol/L (98-107)
[2017-06-13 06:59] LABS: POTASSIUM 3.6 mmol/L (3.6-5.2); SODIUM 136 mmol/L (132-148)
[2017-06-13 07:01] LABS: ALB/GLOB RATIO 0.8 (1.0-2.1); AST/SGOT 75 U/L (14-36); BILIRUBIN,TOTAL 0.3 mg/dL (0.2-1.3); CARBON DIOXIDE 21 mmol/L (22-30); GFR AFRICAN-AMERICAN > 60
[2017-06-13 07:02] LABS: ALKALINE PHOSPHATASE 127 U/L (38-126); ALT/SGPT 66 U/L (9-52); BLOOD UREA NITROGEN 7 mg/dL (7-17); CALCIUM 8.6 mg/dl (8.6-10.4); GLUCOSE,RANDOM 144 mg/dL (65-105)
[2017-06-13] MEDS: (Novolog) Insulin Aspart, Recombinant 100 u/ml 10 ml vial SC SCH ×4 (08:26→21:17)
[2017-06-13] MEDS: cefTRIAXone 2 GM in Sodium Chloride 0.9% 100 ML IVPB SCH (09:47)
[2017-06-13] MEDS: Saccharomyces Boulardi 250 mg Cap PO SCH ×2 (09:58→17:20)
[2017-06-13] MEDS ORDERED: cefTRIAXone 2 GM in Sodium Chloride 0.9% 100 ML IVPB SCH (10:00)
[2017-06-13] MEDS: Magnesium Sulfate 1 gm in D5W 1 GM/100 ML BAG IVPB SCH ×2 (10:01→10:55)
--- NOTE | 2017-06-13 11:17 | CP.PCM.PN ---
<Santa Honeycutt V - Last Filed: 06/13/17 18:01> Objective - Vital Signs/Intake and Output Vital Signs (last 24 hours): Temp Pulse Resp BP Pulse Ox 97.8 F 76 20 133/71 98 06/13/17 16:00 06/13/17 16:00 06/13/17 16:00 06/13/17 16:00 06/13/17 16:00 Intake and Output: 06/13/17 06/13/17 06:59 18:59 Intake Total 1500 1800 Balance 1500 1800 - Medications Medications: Current Medications Dextrose (Dextrose 50% Inj) 0 ml IVP .STAT PRN; Protocol PRN Reason: Hypoglycemia Protocol Dextrose (Glutose 15) 0 gm PO .ONCE PRN; Protocol PRN Reason: Hypoglycemia Protocol Enalapril Maleate (Vasotec) 5 mg PO DAILY [facility] Last Admin: 06/10/17 09:12 Dose: Not Given Ergocalciferol (Drisdol 50,000 Intl Units Cap) 1 cap PO QWK [facility] Last Admin: 06/10/17 09:11 Dose: 1 cap Famotidine (Pepcid) 20 mg PO DAILY [facility] Last Admin: 06/13/17 09:58 Dose: 20 mg Glimepiride (Amaryl) 2 mg PO DAILY [facility] Last Admin: 06/13/17 09:58 Dose: 2 mg Glucagon (Glucagen Diagnostic Kit) 0 mg IM .STAT PRN; Protocol PRN Reason: Hypoglycemia Protocol Dextrose (Dextrose 5% In Water 1000 Ml) 1,000 mls @ 0 mls/hr IV .Q0M PRN; Protocol; Per Protocol PRN Reason: Hypoglycemia Protocol Sodium Chloride (Sodium Chloride 0.9%) 1,000 mls @ 150 mls/hr IV .Q6H40M [facility] Last Admin: 06/13/17 12:48 Dose: 150 mls/hr Azithromycin 500 mg/ Sodium (Chloride) 250 mls @ 250 mls/hr IVPB Q24H [facility] Last Admin: 06/13/17 17:22 Dose: 250 mls/hr Ceftriaxone Sodium 2 gm/ (Sodium Chloride) 100 mls @ 200 mls/hr IVPB DAILY [facility] Last Admin: 06/13/17 09:47 Dose: 200 mls/hr Insulin Aspart (Novolog) 0 unit SC ACHS [facility] PRN Reason: Protocol Last Admin: 06/13/17 17:20 Dose: 1 unit Insulin Glargine (Lantus) 10 unit SC HS [facility] Last Admin: 06/12/17 21:36 Dose: 10 u Ondansetron HCl (Zofran Inj) 4 mg IVP Q6H PRN PRN Reason: Nausea/Vomiting Last Admin: 06/10/17 18:27 Dose: 4 mg Saccharomyces Boulardii (Florastor) 250 mg PO BID [facility] Last Admin: 06/13/17 17:20 Dose: 250 mg - Labs Labs: 06/13/17 06:23 06/13/17 06:23 Attending/Attestation - Attestation I have personally seen and examined this patient.: Yes I have fully participated in the care of the patient.: Yes I have reviewed all pertinent clinical information, including history, physical exam and plan: Yes Notes (Text): Patient seen, examined, and case discussed with day-time resident Patient reporting chills and shivers. Patient is sitting upright. Patient appears better compared to yesterday. patient reporting persistent headache in spite of tylenol. Patient ordered for CT head w/o contrast which is stable. Liver enzymes are increasing. Discontinue statin. Patient is on Azithromycin and Rocephin which can also influence the liver enzymes. Patient continues to have body aches and pains. Explained to family at bedside. Pending results of Blood Culture (06/12) X2, Urine culture (06/12), Tmax: 100.3F from yesterday White count has normalized. Will need to discuss with ID if patient requires PICC line for IV abx or can be transitioned to PO medications. Assessment/Plan 1) Sepsis Bacteremia Pyelonephritis Pneumonia * Criteria: white count, tachycardia, source of infection: pyelonephritis, bacteremia, urinary tract infection, pneumonia * Infectious Disease (Dr. Rao) on the case * Azithromycin 500mg IV Q daily (active since 06/10/17) * Meropenem 500mg IV Q 8 Hour (active since 06/10/17) * Rocephin 1 gram IV qdaily (active since 06/12/19) * Florastor 250mg PO BID * CT Abdomen/Pelvis (06/10/17): patchy and striated nephrogram of the left kidney asociated with mildly dilated collecting system diffuse wall thickening and also associated w moderate perinephric stranding. Acute pyelnonephritis. Mild urinary bladder wall thickening. * Blood culture (06/09/17): E. coli * Urine culture (06/09/17: E. coli * Blood culture (06/12/17): pending * Urine culture (06/12/17): pending * Negative: Strep pneumoniae * Negative: Legionella * pending Mycoplasma * prior Hx of ESBL * per ID note, recommended for at least 14 days on 06/11/17 2) Hyponatremia--->Resolved * Na+ 136 * TSH: 0.52 Free T4: 1.47 * T, Chol: 91, LDL: 43, HDL: 20 3) Diarrhea-->resolved * Denies today * negative C diff Ag and toxin * stool leukocytes + * giardia pending 4)Diabetes, uncontrolled * HgbA1c: 9.4 * Accuchecks QAC and HS * Novolog ISS * Lantus 10units QHS added for uncontrolled diabetes * Glimepiride 2mg PO daily * Held home Metformin 1000mg PO BID * Enalapril 5mg PO daily 5) Hypercholesterolemia * Crestor 10mg PO HS * T, Chol: 91, LDL: 43, HDL: 20 6) Osteoporosis * Vitamin D3 2,000u PO daily 7) Hypokalemia * Monitor and replete 8) Hypomagnesium * Monitor and replete 9) Transaminitis * Increasing * held statin * will need to monitor while on Azithromycin, Rocephin 10) Prophylaxis * SCDs * Heparin 5,000 units SC Q8 * Pepcid 20mg POQdaily <Parvin Hallman - Last Filed: 06/13/17 18:25> Subjective - Date & Time of Evaluation Date of Evaluation: 06/13/17 Time of Evaluation: 11:15 - Subjective Subjective: Internal Medicine Progress Note for Dr. Honeycutt Patient still complains of headache, but is sitting up and states she's feeling better. Patient denies abdominal pain, but Left CVA tenderness elicited on physical exam. Patient admits to chills, but states the headache is what bothers her. She said tyelenol helps a little bit, but then the headache comes back. Explained to patient that we're going to get a CT of her head to check for possible causes. Also explained to patient that the liver function enzymes are increased. Objective - Vital Signs/Intake and Output Vital Signs (last 24 hours): Temp Pulse Resp BP Pulse Ox 99.7 F H 96 H 20 131/78 95 06/13/17 08:00 06/13/17 08:00 06/13/17 08:00 06/13/17 08:00 06/13/17 08:00 Intake and Output: 06/13/17 06/13/17 06:59 18:59 Intake Total 1500 Balance 1500 - Medications Medications: Current Medications Dextrose (Dextrose 50% Inj) 0 ml IVP .STAT PRN; Protocol PRN Reason: Hypoglycemia Protocol Dextrose (Glutose 15) 0 gm PO .ONCE PRN; Protocol PRN Reason: Hypoglycemia Protocol Enalapril Maleate (Vasotec) 5 mg PO DAILY [facility] Last Admin: 06/10/17 09:12 Dose: Not Given Ergocalciferol (Drisdol 50,000 Intl Units Cap) 1 cap PO QWK [facility] Last Admin: 06/10/17 09:11 Dose: 1 cap Famotidine (Pepcid) 20 mg PO DAILY [facility] Last Admin: 06/13/17 09:58 Dose: 20 mg Glimepiride (Amaryl) 2 mg PO DAILY [facility] Last Admin: 06/13/17 09:58 Dose: 2 mg Glucagon (Glucagen Diagnostic Kit) 0 mg IM .STAT PRN; Protocol PRN Reason: Hypoglycemia Protocol Dextrose (Dextrose 5% In Water 1000 Ml) 1,000 mls @ 0 mls/hr IV .Q0M PRN; Protocol; Per Protocol PRN Reason: Hypoglycemia Protocol Sodium Chloride (Sodium Chloride 0.9%) 1,000 mls @ 150 mls/hr IV .Q6H40M [facility] Last Admin: 06/13/17 04:55 Dose: Not Given Azithromycin 500 mg/ Sodium (Chloride) 250 mls @ 250 mls/hr IVPB Q24H [facility] Last Admin: 06/12/17 17:39 Dose: 250 mls/hr Ceftriaxone Sodium 2 gm/ (Sodium Chloride) 100 mls @ 200 mls/hr IVPB DAILY [facility] Last Admin: 06/12/17 12:16 Dose: 200 mls/hr Insulin Aspart (Novolog) 0 unit SC ACHS [facility] PRN Reason: Protocol Last Admin: 06/13/17 08:26 Dose: 1 unit Insulin Glargine (Lantus) 10 unit SC HS [facility] Last Admin: 06/12/17 21:36 Dose: 10 u Ondansetron HCl (Zofran Inj) 4 mg IVP Q6H PRN PRN Reason: Nausea/Vomiting Last Admin: 06/10/17 18:27 Dose: 4 mg Saccharomyces Boulardii (Florastor) 250 mg PO BID [facility] Last Admin: 06/13/17 09:58 Dose: 250 mg - Labs Labs: 06/13/17 06:23 06/13/17 06:23 - Constitutional Appears: Non-toxic - Head Exam Head Exam: NORMAL INSPECTION - Eye Exam Eye Exam: EOMI, Normal appearance - ENT Exam ENT Exam: Mucous Membranes Moist - Neck Exam Neck Exam: Full ROM - Respiratory Exam Respiratory Exam: Decreased Breath Sounds, NORMAL BREATHING PATTERN. absent: Accessory Muscle Use, Respiratory Distress - Cardiovascular Exam Cardiovascular Exam: REGULAR RHYTHM, +S1, +S2. absent: Bradycardia, Tachycardia - GI/Abdominal Exam GI & Abdominal Exam: Soft, Tenderness (left upper quadrant pain), Normal Bowel Sounds - Extremities Exam Extremities Exam: Full ROM. absent: Pedal Edema - Back Exam Back Exam: CVA tenderness (L) - Neurological Exam Neurological Exam: Alert, Awake, Oriented x3 - Psychiatric Exam Psychiatric exam: Normal Affect, Normal Mood - Skin Skin Exam: Dry, Intact, Normal Color, Warm Assessment and Plan - Assessment and Plan (Free Text) Assessment: 67F gram negative sepsis/pyelonephritis CXR A/P: Right lung infiltrate CXR- right middle lobe infiltrate, consider pneumonia (see full report) f/u mycoplasma, procalcitonin, legionella, strep pneumo S. pneumoniae antigen negative Urine Legionella pneumophila Antigen negative Patient is on Azithromycin 500mg IV q24h 06/12 Dr. Rao started patient on Rocephin 1 gm QD Hyponatremia Na+ 130 f/u TSH, T4 f/u lipid panel 10/ AM cortisol 16.3 T4 1.47, TSH 0.52 06/10 Urine Osm 331 10 Urine Random Sodium 66 Diarrhea negative C diff Ag and toxin stool leukocytes pending giardia pending electrolytes Pyelonephritis 2/2 UTI, history of ESBL + UTI in the past Abd/Pelvis CT w/PO & IV contrast - edema and fat stranding seen surrounding left kidney, suggestive of pyelonephritis. Leukocytosis- WBC increased to 18.9 with left shift and 19 bands on Admission Temp 100.1 oral in ED Afebrile over 24hours (and since admission) UA - large blood, large leukocyte esterase, bacteria mod - EPITH CELLS = 12 06/10 Repeat UA has more blood and more epithelial cells 06/10 Dr. Rao ID consult added Merrem 06/10 due to history of ESBL positive UTI in the past, there is a concern for Multi-drug resistant organism if no improvement 06/09 Urine culture: gram negative rods 06/09 Blood culture: gram negative rods Rocephin 1 gm IVPB daily switched to Merrem per Dr. Rao 06/10 Tylenol 650mg PO Q6 PRN for fever/pain Diabetes, uncontrolled Accuchecks ISS Novolog Lantus 10units QHS added for uncontrolled diabetes Held home Metformin 1000mg PO BID Enalapril 5mg PO daily Hypotension, secondary to sepsis Patient hypotensive today- given 1L bolus NS in AM and started IVF NS @150cc/hr BP currently stable and patient asymptomatic. Monitor vitals Q4H. f/u lactic acid Hypercholesterolemia Crestor 10mg PO HS Osteoporosis Vitamin D3 2,000u PO daily Physical therapy Eval and treat ordered 06/13 Prophylaxis SCDs Heparin 5,000 units SC Q8 Pepcid 20mg POQD Discuss with Dr. Tangela Hallman, DO PGY1
--- NOTE | 2017-06-13 13:03 | CT ---
PROCEDURE: CT HEAD WITHOUT CONTRAST. HISTORY: headache, did not get better with tylenol COMPARISON: Unenhanced head CT 08/01/2013. TECHNIQUE: Axial computed tomography images were obtained through the head/brain without intravenous contrast. Radiation dose: Total exam DLP = 1241.58 mGy-cm. This CT exam was performed using one or more of the following dose reduction techniques: Automated exposure control, adjustment of the mA and/or kV according to patient size, and/or use of iterative reconstruction technique. FINDINGS: HEMORRHAGE: No intracranial hemorrhage. BRAIN: Normal density is appreciated in the godinez and white matter structures above and below the tentorium with great white matter differentiation well preserved as well. There is no mass effect or suspicious extra-axial collection in the midline brain anatomy appears diffusely unremarkable including the corpus callosum. Craniocervical junction appears intact. VENTRICLES: Unremarkable. No hydrocephalus. CALVARIUM: Unremarkable. PARANASAL SINUSES: Unremarkable as visualized. No significant inflammatory changes. MASTOID AIR CELLS: Unremarkable as visualized. No inflammatory changes. OTHER FINDINGS: None. IMPRESSION: Stable unremarkable unenhanced head CT compared to 08/01/2013.
[2017-06-13] MEDS: Azithromycin 500 MG in Sodium Chloride 0.9% 250 ML IVPB SCH (17:22)
[2017-06-13] MEDS: (Lantus) Insulin Glargine, Recombinant SC SCH (21:17)
[2017-06-14] MEDS: Sodium Chloride 0.9% 1,000 ML IV SCH ×2 (01:02→09:44)
[2017-06-14] MEDS: (Novolog) Insulin Aspart, Recombinant 100 u/ml 10 ml vial SC SCH ×2 (07:35→12:22)
[2017-06-14 08:05] LABS: BASO % 0.5 % (0.0-2.0); EOS # 0.3 K/uL (0.0-0.7); EOS % 3.6 % (0.0-4.0); HEMATOCRIT 35.9 % (34.0-47.0); LYMPH % 26.7 % (20.0-40.0); MEAN CELL VOLUME 84.9 fL (81.0-99.0); MEAN CORPUSCULAR HEMOGLOBIN 29.1 pg (27.0-31.0); MEAN CORPUSCULAR HGB CONC 34.2 g/dL (33.0-37.0); MEAN PLATELET VOLUME 9.2 fL (7.2-11.7); MONO % 13.5 % (0.0-10.0); RED CELL DISTRIBUTION WIDTH 13.4 % (11.5-14.5); WHITE BLOOD COUNT 7.6 K/uL (4.8-10.8)
[2017-06-14 08:10] LABS: CHLORIDE 101 mmol/L (98-107)
[2017-06-14 08:11] LABS: POTASSIUM 3.6 mmol/L (3.6-5.2); SODIUM 136 mmol/L (132-148)
[2017-06-14 08:13] LABS: ALKALINE PHOSPHATASE 127 U/L (38-126); AST/SGOT 80 U/L (14-36); BILIRUBIN,TOTAL 0.4 mg/dL (0.2-1.3); BLOOD UREA NITROGEN 8 mg/dL (7-17); CARBON DIOXIDE 25 mmol/L (22-30); GFR AFRICAN-AMERICAN > 60; GLUCOSE,RANDOM 130 mg/dL (65-105); TOTAL PROTEIN 6.9 g/dL (6.3-8.3)
[2017-06-14 08:14] VITALS: BP 154/91; PULSE 100; TEMP 98.2; O2SAT 97
[2017-06-14 08:14] LABS: ALT/SGPT 74 U/L (9-52); CALCIUM 8.6 mg/dl (8.6-10.4)
[2017-06-14] MEDS: Ergocalciferol 50,000 Intl Units Cap PO SCH (09:35)
[2017-06-14] MEDS: Saccharomyces Boulardi 250 mg Cap PO SCH (09:35)
[2017-06-14] MEDS: cefTRIAXone 2 GM in Sodium Chloride 0.9% 100 ML IVPB SCH (10:40)
[2017-06-14] MEDS ORDERED: Apap-Butalbital-Caffeine 325-50-40mg Tab PO PRN (10:44)
--- NOTE | 2017-06-14 12:47 | CP.PCM.PN ---
Subjective - Date & Time of Evaluation Date of Evaluation: 06/14/17 Time of Evaluation: 12:46 - Subjective Subjective: Patient started on lisinopril for high blood pressure. enlapril discontinued Objective - Vital Signs/Intake and Output Vital Signs (last 24 hours): Temp Pulse Resp BP Pulse Ox 98.2 F 100 H 20 154/91 H 97 06/14/17 08:12 06/14/17 08:12 06/14/17 08:12 06/14/17 08:12 06/14/17 08:12 Intake and Output: 06/14/17 06/14/17 06:59 18:59 Intake Total 3000 Balance 3000 - Medications Medications: Current Medications Acetaminophen/Butalbital/Caffeine (Fioricet) 1 tab PO Q4 PRN PRN Reason: Headache Dextrose (Dextrose 50% Inj) 0 ml IVP .STAT PRN; Protocol PRN Reason: Hypoglycemia Protocol Dextrose (Glutose 15) 0 gm PO .ONCE PRN; Protocol PRN Reason: Hypoglycemia Protocol Ergocalciferol (Drisdol 50,000 Intl Units Cap) 1 cap PO QWK [facility] Last Admin: 06/10/17 09:11 Dose: 1 cap Famotidine (Pepcid) 20 mg PO DAILY [facility] Last Admin: 06/14/17 09:34 Dose: 20 mg Glimepiride (Amaryl) 2 mg PO DAILY [facility] Last Admin: 06/14/17 09:35 Dose: 2 mg Glucagon (Glucagen Diagnostic Kit) 0 mg IM .STAT PRN; Protocol PRN Reason: Hypoglycemia Protocol Dextrose (Dextrose 5% In Water 1000 Ml) 1,000 mls @ 0 mls/hr IV .Q0M PRN; Protocol; Per Protocol PRN Reason: Hypoglycemia Protocol Sodium Chloride (Sodium Chloride 0.9%) 1,000 mls @ 150 mls/hr IV .Q6H40M [facility] Last Admin: 06/14/17 09:44 Dose: 150 mls/hr Azithromycin 500 mg/ Sodium (Chloride) 250 mls @ 250 mls/hr IVPB Q24H [facility] Last Admin: 06/13/17 17:22 Dose: 250 mls/hr Ceftriaxone Sodium 2 gm/ (Sodium Chloride) 100 mls @ 200 mls/hr IVPB DAILY [facility] Last Admin: 06/14/17 10:40 Dose: 200 mls/hr Insulin Aspart (Novolog) 0 unit SC ACHS [facility] PRN Reason: Protocol Last Admin: 06/14/17 12:22 Dose: 2 unit Insulin Glargine (Lantus) 10 unit SC HS [facility] Last Admin: 06/13/17 21:17 Dose: 10 u Lisinopril (Zestril) 5 mg PO DAILY [facility] Ondansetron HCl (Zofran Inj) 4 mg IVP Q6H PRN PRN Reason: Nausea/Vomiting Last Admin: 06/10/17 18:27 Dose: 4 mg Saccharomyces Boulardii (Florastor) 250 mg PO BID [facility] Last Admin: 06/14/17 09:35 Dose: 250 mg - Labs Labs: 06/14/17 07:47 06/14/17 07:47
--- NOTE | 2017-06-14 18:33 | CP.PCM.DIS ---
<Parvin Hallman - Last Filed: 06/14/17 18:47> Provider - Provider Date of Admission: 06/09/17 21:09 Attending physician: Santa Honeycutt DO Consults: Dr. Jalen OSWALD consult Time Spent in preparation of Discharge (in minutes): 35 Diagnosis - Discharge Diagnosis (1) Pyelonephritis, acute Status: Resolved Comment: patient on antibiotics Hospital Course - Lab Results Lab Results: Micro Results 06/12/17 12:45 Blood Blood Culture - Preliminary NO GROWTH AFTER 48 HOURS 06/12/17 13:49 Urine Urine Culture - Final No Growth (<1,000 CFU/ML) 06/12/17 11:40 Blood Blood Culture - Preliminary NO GROWTH AFTER 48 HOURS 06/10/17 08:40 Stool Stool Culture - Final NO SALMONELLA, SHIGELLA OR CAMPYLOBACTER ISOLATED. 06/10/17 08:40 Stool Ova and Parasite Concentrate Exam - Final 06/09/17 21:00 Blood-Venous Blood Culture - Final Escherichia Coli 06/09/17 21:00 Blood-Venous Gram Stain - Final 06/09/17 Unknown Urine,Clean Catch Urine Culture - Final Escherichia Coli 06/09/17 21:00 Blood-Venous Blood Culture - Final Escherichia Coli 06/09/17 21:00 Blood-Venous Gram Stain - Final Most Recent Lab Values WBC 7.6 K/uL (4.8-10.8) 06/14/17 07:47 RBC 4.23 Mil/uL (3.80-5.20) 06/14/17 07:47 Hgb 12.3 g/dL (11.0-16.0) 06/14/17 07:47 Hct 35.9 % (34.0-47.0) 06/14/17 07:47 MCV 84.9 fL (81.0-99.0) 06/14/17 07:47 MCH 29.1 pg (27.0-31.0) 06/14/17 07:47 MCHC 34.2 g/dL (33.0-37.0) 06/14/17 07:47 RDW 13.4 % (11.5-14.5) 06/14/17 07:47 Plt Count 228 K/uL (130-400) 06/14/17 07:47 MPV 9.2 fL (7.2-11.7) 06/14/17 07:47 Neut % (Auto) 55.7 % (50.0-75.0) 06/14/17 07:47 Lymph % (Auto) 26.7 % (20.0-40.0) 06/14/17 07:47 Mifflin % (Auto) 13.5 % (0.0-10.0) H 06/14/17 07:47 Eos % (Auto) 3.6 % (0.0-4.0) 06/14/17 07:47 Baso % (Auto) 0.5 % (0.0-2.0) 06/14/17 07:47 Neut # 4.2 K/uL (1.8-7.0) 06/14/17 07:47 Lymph # 2.0 K/uL (1.0-4.3) 06/14/17 07:47 Mifflin # 1.0 K/uL (0.0-0.8) H 06/14/17 07:47 Eos # 0.3 K/uL (0.0-0.7) 06/14/17 07:47 Baso # 0.0 K/uL (0.0-0.2) 06/14/17 07:47 Neutrophils % (Manual) 74 % (50-75) 06/11/17 06:25 Band Neutrophils % 12 % (0-2) H* 06/11/17 06:25 Lymphocytes % (Manual) 8 % (20-40) L 06/11/17 06:25 Monocytes % (Manual) 5 % (0-10) 06/11/17 06:25 Basophils % (Manual) 1 % (0-2) 06/11/17 06:25 Platelet Estimate Normal (NORMAL) 06/11/17 06:25 Large Platelets Present 06/11/17 06:25 Giant Platelets Present 06/10/17 07:54 Polychromasia Slight 06/10/17 07:54 Hypochromasia (manual) Slight 06/10/17 07:54 Poikilocytosis (manual Slight 06/10/17 07:54 Anisocytosis (manual) Slight 06/10/17 07:54 Ovalocytes Slight 06/10/17 07:54 [place] Cells Slight 06/10/17 07:54 Sodium 136 mmol/L (132-148) 06/14/17 07:47 Potassium 3.6 mmol/L (3.6-5.2) 06/14/17 07:47 Chloride 101 mmol/L (98-107) 06/14/17 07:47 Carbon Dioxide 25 mmol/L (22-30) 06/14/17 07:47 Anion Gap 14 (10-20) 06/14/17 07:47 BUN 8 mg/dL (7-17) 06/14/17 07:47 Creatinine 0.8 mg/dL (0.7-1.2) 06/14/17 07:47 Est GFR ( Amer) > 60 06/14/17 07:47 Est GFR (Non-Af Amer) > 60 06/14/17 07:47 POC Glucose (mg/dL) 245 mg/dL (65-110) H 06/14/17 11:49 Random Glucose 130 mg/dL (65-105) H 06/14/17 07:47 Hemoglobin A1c 9.4 % (4.2-6.5) H D 06/10/17 20:35 Serum Osmolality 282 mosm/kg (272-300) 06/10/17 20:35 Lactic Acid 1.5 mmol/L (0.7-2.1) 06/11/17 16:37 Calcium 8.6 mg/dl (8.6-10.4) 06/14/17 07:47 Magnesium 1.6 mg/dL (1.6-2.3) 06/14/17 14:18 Total Bilirubin 0.4 mg/dL (0.2-1.3) 06/14/17 07:47 AST 80 U/L (14-36) H 06/14/17 07:47 ALT 74 U/L (9-52) H 06/14/17 07:47 Alkaline Phosphatase 127 U/L (38-126) H 06/14/17 07:47 Total Protein 6.9 g/dL (6.3-8.3) 06/14/17 07:47 Albumin 3.4 g/dL (3.5-5.0) L 06/14/17 07:47 Globulin 3.5 gm/dL (2.2-3.9) 06/14/17 07:47 Albumin/Globulin Ratio 1.0 (1.0-2.1) 06/14/17 07:47 Triglycerides 196 mg/dL (0-149) H 06/11/17 06:25 Cholesterol 91 mg/dL (0-199) 06/11/17 06:25 LDL Cholesterol Direct 43 mg/dL (0-129) 06/11/17 06:25 HDL Cholesterol 20 mg/dL (30-70) L 06/11/17 06:25 Lipase 35 U/L (23-300) 06/09/17 18:17 Free T4 1.47 ng/dL (0.78-2.19) 06/11/17 06:25 TSH 3rd Generation 0.52 mIU/L (0.46-4.68) 06/11/17 06:25 Cortisol AM Sample 16.3 ug/dL (4.46-22.7) 06/11/17 06:25 Urine Color Colorless (YELLOW) 06/12/17 13:56 Urine Clarity Clear (Clear) 06/12/17 13:56 Urine pH 7.0 (5.0-8.0) 06/12/17 13:56 Ur Specific Mcleod 1.008 (1.003-1.030) 06/12/17 13:56 Urine Protein Negative mg/dL (NEGATIVE) 06/12/17 13:56 Urine Glucose (UA) 2+ mg/dL (Normal) H 06/12/17 13:56 Urine Ketones Negative mg/dL (NEGATIVE) 06/12/17 13:56 Urine Blood 1+ (NEGATIVE) H 06/12/17 13:56 Urine Nitrate Negative (NEGATIVE) 06/12/17 13:56 Urine Bilirubin Negative (NEGATIVE) 06/12/17 13:56 Urine Urobilinogen Normal mg/dL (0.2-1.0) 06/12/17 13:56 Ur Leukocyte Esterase Neg Joel/uL (Negative) 06/12/17 13:56 Urine WBC (Auto) 3 /hpf (0-5) 06/12/17 13:56 Urine RBC (Auto) 28 /hpf (0-3) H 06/10/17 08:55 Ur Squamous Epith Cells 23 /hpf (0-5) H 06/10/17 08:55 Amorphous Sediment Occ /ul (<OCC) H 06/10/17 08:55 Urine Bacteria Few (<OCC) H 06/10/17 08:55 Urine Osmolality 331 mosm/kg (300-1000) 06/10/17 21:50 Ur Random Sodium 66 mmol/L 06/10/17 21:50 Stool Leukocytes, Qual Positive (NEGATIVE) H 06/10/17 08:40 C. difficile Ag & Toxin Negative (NEGATIVE) 06/10/17 08:40 Influenza Typ A,B (EIA) Negative for flu a/b (NEGATIVE) 06/09/17 19:08 H.influenzae Type B Ag Not required (NEGATIVE) 06/10/17 21:50 Ur L.pneumophila Ag Negative (NEGATIVE) 06/10/17 08:40 Mycoplasma pneumon IgG 2.18 (<=0.90) H 06/10/17 20:35 Mycoplasma pneumon IgM 154 U/mL (<770) 06/10/17 20:35 N.meningitidis ACY/W135 Not required (NEGATIVE) 06/10/17 21:50 N.meningi B/E.coli K1 Ag Not required (NEGATIVE) 06/10/17 21:50 Group B Strep Antigen Not required (NEGATIVE) 06/10/17 21:50 S. pneumoniae Antigen Negative (NEGATIVE) 06/10/17 21:50 - Hospital Course Hospital Course: 67 year old sinhala speaking female with a past medical history of Diabetes, HTN , Hypercholesterolemia and Osteoporosis was brought into the emergency department accompanied by family members for left mid abdominal pain that radiates to her left lower back. The patient's granddaughter was used to translate at bedside. The patient reports that she began to experience abdominal discomfort approximately 3 days ago. She states that she began to experience subjective fever/chills yesterday and her abdominal pain has been worsening. The patient reports headaches and episodes of dizziness along with the subjective fevers. The patient denies any nausea, vomiting, diarrhea, dysuria, sick contacts or any other complaints at this time. Patient has recently returned from [facility] on May 30, 2017. Hospital course Patient was treated for pyelonephritis during her stay and found to have pneumonia. Patient was found to have a Hgb A1c of 9.4. Accucheck QAC and HS. Patient has hypercholesterolemia. T, Chol: 91, LDL: 43, HDL: 20 CXR A/P showed Right lung infiltrate, CXR- right middle lobe infiltrate, patient was treated for pneumonia. Patient placed on antibiotics Azithromycin 500mg IV Q daily (active since 06/10/17), Meropenem 500mg IV Q 8 Hour (active since 06/10/17), Rocephin 1 gram IV qdaily (active since 06/12/19) for pyelonephritis. S. pneumoniae antigen negative. Urine Legionella pneumophila Antigen negative. Patient was started on lisinopril for high blood pressure in the hospital on her last day. enlapril was discontinued. Patient discharged on: cephalexin 500mg PO QID 10 days #30 with instructions: Patient is medically stable for home. Patient to follow up with DR. Schneider. within 1 week of discharge from the hospital. Per ID, patient is stable for discharge. Patient to complete Keflex 500mg PO TID for ten days to start tomorrow. Patient should be advised to take with probiotic such as yogurt while on medication. Patient to hold her Liptior (cholestrol medication) until she comes to the clinic to recheck liver enzymes. La paciente esta medicamente estable para irse a la casa. La paciente tiene que hacer john bradly con el Dr Schneider dentro de john semana despues de [place] sido elizabeth de [place]. La paciente debera terminar de manoj el Keflex 500 mg por via oral nathanael veces al keyona por 10 carrillo empezando manana. [place] el antibiotico con algun probiotico jason el yogurt mientras dure el tratamiento. Por ahora no tome el lipitor (medicina para el colesterol) hasta que vaya a la clinica y le chequen las enzimas del higado. - Date & Time of H&P Date of H&P: 06/14/17 Time of H&P: 18:30 Discharge Exam - Head Exam Head Exam: NORMAL INSPECTION - Eye Exam Eye Exam: EOMI, Normal appearance - ENT Exam ENT Exam: Mucous Membranes Moist - Neck Exam Neck exam: Full Rom - Respiratory Exam Respiratory Exam: NORMAL BREATHING PATTERN - Cardiovascular Exam Cardiovascular Exam: REGULAR RHYTHM, +S1, +S2 - GI/Abdominal Exam GI & Abdominal Exam: Soft. absent: Tenderness - Extremities Exam Extremities exam: full ROM - Back Exam Back exam: FULL ROM - Neurological Exam Neurological exam: Alert, CN II-XII Intact - Psychiatric Exam Psychiatric exam: Normal Affect, Normal Mood - Skin Skin Exam: Dry, Intact, Normal Color, Warm Discharge Plan - Discharge Medications Prescriptions: Cephalexin [cephalexin] 500 mg PO TID 10 Days #30 cap Lisinopril [Zestril] 5 mg PO DAILY #30 tab - Follow Up Plan Condition: STABLE Disposition: HOME/ ROUTINE Instructions: Cephalexin (By mouth), Lisinopril (By mouth), Acute Pyelonephritis (DC), Acute Pyelonephritis (GEN) Additional Instructions: Patient is medically stable for home. Patient to follow up with DR. Schneider. within 1 week of discharge from the hospital. Per ID, patient is stable for discharge. Patient to complete Keflex 500mg PO TID for ten days to start tomorrow. Patient should be advised to take with probiotic such as yogurt while on medication. Patient to hold her Liptior (cholestrol medication) until she comes to the clinic to recheck liver enzymes. La paciente esta medicamente estable para irse a la casa. La paciente tiene que hacer john bradly con el Dr Schneider dentro de john semana despues de [place] sido elizabeth de [place]. La paciente debera terminar de manoj el Keflex 500 mg por via oral nathanael veces al keyona por 10 carrillo empezando manana. [place] el antibiotico con algun probiotico jason el yogurt mientras dure el tratamiento. Por ahora no tome el lipitor (medicina para el colesterol) hasta que vaya a la clinica y le chequen las enzimas del higado. Referrals: Evangelista Schneider MD [Staff Provider] - <Santa Honeycutt V - Last Filed: 06/14/17 19:56> Provider - Provider Date of Admission: 06/09/17 21:09 Attending physician: Santa Honeycutt DO Hospital Course - Lab Results Lab Results: Micro Results 06/12/17 12:45 Blood Blood Culture - Preliminary NO GROWTH AFTER 48 HOURS 06/12/17 13:49 Urine Urine Culture - Final No Growth (<1,000 CFU/ML) 06/12/17 11:40 Blood Blood Culture - Preliminary NO GROWTH AFTER 48 HOURS 06/10/17 08:40 Stool Stool Culture - Final NO SALMONELLA, SHIGELLA OR CAMPYLOBACTER ISOLATED. 06/10/17 08:40 Stool Ova and Parasite Concentrate Exam - Final 06/09/17 21:00 Blood-Venous Blood Culture - Final Escherichia Coli 06/09/17 21:00 Blood-Venous Gram Stain - Final 06/09/17 Unknown Urine,Clean Catch Urine Culture - Final Escherichia Coli 06/09/17 21:00 Blood-Venous Blood Culture - Final Escherichia Coli 06/09/17 21:00 Blood-Venous Gram Stain - Final Most Recent Lab Values WBC 7.6 K/uL (4.8-10.8) 06/14/17 07:47 RBC 4.23 Mil/uL (3.80-5.20) 06/14/17 07:47 Hgb 12.3 g/dL (11.0-16.0) 06/14/17 07:47 Hct 35.9 % (34.0-47.0) 06/14/17 07:47 MCV 84.9 fL (81.0-99.0) 06/14/17 07:47 MCH 29.1 pg (27.0-31.0) 06/14/17 07:47 MCHC 34.2 g/dL (33.0-37.0) 06/14/17 07:47 RDW 13.4 % (11.5-14.5) 06/14/17 07:47 Plt Count 228 K/uL (130-400) 06/14/17 07:47 MPV 9.2 fL (7.2-11.7) 06/14/17 07:47 Neut % (Auto) 55.7 % (50.0-75.0) 06/14/17 07:47 Lymph % (Auto) 26.7 % (20.0-40.0) 06/14/17 07:47 [place]ifflin % (Auto) 13.5 % (0.0-10.0) H 06/14/17 07:47 Eos % (Auto) 3.6 % (0.0-4.0) 06/14/17 07:47 Baso % (Auto) 0.5 % (0.0-2.0) 06/14/17 07:47 Neut # 4.2 K/uL (1.8-7.0) 06/14/17 07:47 Lymph # 2.0 K/uL (1.0-4.3) 06/14/17 07:47 [place] # 1.0 K/uL (0.0-0.8) H 06/14/17 07:47 Eos # 0.3 K/uL (0.0-0.7) 06/14/17 07:47 Baso # 0.0 K/uL (0.0-0.2) 06/14/17 07:47 Neutrophils % (Manual) 74 % (50-75) 06/11/17 06:25 Band Neutrophils % 12 % (0-2) H* 06/11/17 06:25 Lymphocytes % (Manual) 8 % (20-40) L 06/11/17 06:25 Monocytes % (Manual) 5 % (0-10) 06/11/17 06:25 Basophils % (Manual) 1 % (0-2) 06/11/17 06:25 Platelet Estimate Normal (NORMAL) 06/11/17 06:25 Large Platelets Present 06/11/17 06:25 Giant Platelets Present 06/10/17 07:54 Polychromasia Slight 06/10/17 07:54 Hypochromasia (manual) Slight 06/10/17 07:54 Poikilocytosis (manual Slight 06/10/17 07:54 Anisocytosis (manual) Slight 06/10/17 07:54 Ovalocytes Slight 06/10/17 07:54 Alexx Cells Slight 06/10/17 07:54 Sodium 136 mmol/L (132-148) 06/14/17 07:47 Potassium 3.6 mmol/L (3.6-5.2) 06/14/17 07:47 Chloride 101 mmol/L (98-107) 06/14/17 07:47 Carbon Dioxide 25 mmol/L (22-30) 06/14/17 07:47 Anion Gap 14 (10-20) 06/14/17 07:47 BUN 8 mg/dL (7-17) 06/14/17 07:47 Creatinine 0.8 mg/dL (0.7-1.2) 06/14/17 07:47 Est GFR ( Amer) > 60 06/14/17 07:47 Est GFR (Non-Af Amer) > 60 06/14/17 07:47 POC Glucose (mg/dL) 245 mg/dL (65-110) H 06/14/17 11:49 Random Glucose 130 mg/dL (65-105) H 06/14/17 07:47 Hemoglobin A1c 9.4 % (4.2-6.5) H D 06/10/17 20:35 Serum Osmolality 282 mosm/kg (272-300) 06/10/17 20:35 Lactic Acid 1.5 mmol/L (0.7-2.1) 06/11/17 16:37 Calcium 8.6 mg/dl (8.6-10.4) 06/14/17 07:47 Magnesium 1.6 mg/dL (1.6-2.3) 06/14/17 14:18 Total Bilirubin 0.4 mg/dL (0.2-1.3) 06/14/17 07:47 AST 80 U/L (14-36) H 06/14/17 07:47 ALT 74 U/L (9-52) H 06/14/17 07:47 Alkaline Phosphatase 127 U/L (38-126) H 06/14/17 07:47 Total Protein 6.9 g/dL (6.3-8.3) 06/14/17 07:47 Albumin 3.4 g/dL (3.5-5.0) L 06/14/17 07:47 Globulin 3.5 gm/dL (2.2-3.9) 06/14/17 07:47 Albumin/Globulin Ratio 1.0 (1.0-2.1) 06/14/17 07:47 Triglycerides 196 mg/dL (0-149) H 06/11/17 06:25 Cholesterol 91 mg/dL (0-199) 06/11/17 06:25 LDL Cholesterol Direct 43 mg/dL (0-129) 06/11/17 06:25 HDL Cholesterol 20 mg/dL (30-70) L 06/11/17 06:25 Lipase 35 U/L (23-300) 06/09/17 18:17 Free T4 1.47 ng/dL (0.78-2.19) 06/11/17 06:25 TSH 3rd Generation 0.52 mIU/L (0.46-4.68) 06/11/17 06:25 Cortisol AM Sample 16.3 ug/dL (4.46-22.7) 06/11/17 06:25 Urine Color Colorless (YELLOW) 06/12/17 13:56 Urine Clarity Clear (Clear) 06/12/17 13:56 Urine pH 7.0 (5.0-8.0) 06/12/17 13:56 Ur Specific Mcleod 1.008 (1.003-1.030) 06/12/17 13:56 Urine Protein Negative mg/dL (NEGATIVE) 06/12/17 13:56 Urine Glucose (UA) 2+ mg/dL (Normal) H 06/12/17 13:56 Urine Ketones Negative mg/dL (NEGATIVE) 06/12/17 13:56 Urine Blood 1+ (NEGATIVE) H 06/12/17 13:56 Urine Nitrate Negative (NEGATIVE) 06/12/17 13:56 Urine Bilirubin Negative (NEGATIVE) 06/12/17 13:56 Urine Urobilinogen Normal mg/dL (0.2-1.0) 06/12/17 13:56 Ur Leukocyte Esterase Neg Joel/uL (Negative) 06/12/17 13:56 Urine WBC (Auto) 3 /hpf (0-5) 06/12/17 13:56 Urine RBC (Auto) 28 /hpf (0-3) H 06/10/17 08:55 Ur Squamous Epith Cells 23 /hpf (0-5) H 06/10/17 08:55 Amorphous Sediment Occ /ul (<OCC) H 06/10/17 08:55 Urine Bacteria Few (<OCC) H 06/10/17 08:55 Urine Osmolality 331 mosm/kg (300-1000) 06/10/17 21:50 Ur Random Sodium 66 mmol/L 06/10/17 21:50 Stool Leukocytes, Qual Positive (NEGATIVE) H 06/10/17 08:40 C. difficile Ag & Toxin Negative (NEGATIVE) 06/10/17 08:40 Influenza Typ A,B (EIA) Negative for flu a/b (NEGATIVE) 06/09/17 19:08 H.influenzae Type B Ag Not required (NEGATIVE) 06/10/17 21:50 Ur L.pneumophila Ag Negative (NEGATIVE) 06/10/17 08:40 Mycoplasma pneumon IgG 2.18 (<=0.90) H 06/10/17 20:35 Mycoplasma pneumon IgM 154 U/mL (<770) 06/10/17 20:35 N.meningitidis ACY/W135 Not required (NEGATIVE) 06/10/17 21:50 N.meningi B/E.coli K1 Ag Not required (NEGATIVE) 06/10/17 21:50 Group B Strep Antigen Not required (NEGATIVE) 06/10/17 21:50 S. pneumoniae Antigen Negative (NEGATIVE) 06/10/17 21:50 Attending/Attestation - Attestation I have personally seen and examined this patient.: Yes I have fully participated in the care of the patient.: Yes I have reviewed all pertinent clinical information, including history, physical exam and plan: Yes Notes (Text): Patient seen, examined, and case discussed with day-time resident Patient seen at bedside. Patient is sitting upright, AAOX3, no acute distress. Patient appears better compared to yesterday. Flank pain subsided. Chills resolved. Patient's repeat blood cultures are negative, urine culture negative, remains afebrile for 48 hours, and white count has normalized Discussed with ID, patient stable from their standpoint for discharge, recommend Keflex 500mg PO TID for ten days to start tomorrow. Discussed with patient at bedside, patient will need to have repeat LFTS in a week to see if they have resolve. Statin was held given rise in LFTs. Patient verbalized understanding and agree with the plan. Discharge order and discharge instructions discussed with patient at bedside. Patient is medically stable for home. Patient to follow up with DR. Schneider. within 1 week of discharge from the hospital. Per ID, patient is stable for discharge. Patient to complete Keflex 500mg PO TID for ten days to start tomorrow. Patient should be advised to take with probiotic such as yogurt while on medication. Patient to hold her Liptior (cholestrol medication) until she comes to the clinic to recheck liver enzymes. This is summary of patient's hospitalization. Please see EMR for further details. Assessment/Plan 1) Sepsis--Stable Bacteremia--Resolved Pyelonephritis--Resolved Pneumonia--Resolved * Criteria: white count, tachycardia, source of infection: pyelonephritis, bacteremia, urinary tract infection, pneumonia * Infectious Disease (Dr. Rao) on the case * Azithromycin 500mg IV Q daily (active since 06/10/17) * Rocephin 1 gram IV qdaily (active since 06/12/19) * Florastor 250mg PO BID * CT Abdomen/Pelvis (06/10/17): patchy and striated nephrogram of the left kidney asociated with mildly dilated collecting system diffuse wall thickening and also associated w moderate perinephric stranding. Acute pyelnonephritis. Mild urinary bladder wall thickening. * Blood culture (06/09/17): E. coli * Urine culture (06/09/17: E. coli * Blood culture (06/12/17): negative for 48 hours X2 * Urine culture (06/12/17): nor gwoth * Negative: Strep pneumoniae * Negative: Legionella * pending Mycoplasma * prior Hx of ESBL * Discharge: Keflex 500mg PO tid for ten days 2) Hyponatremia--->Resolved * Na+ 136 * TSH: 0.52 Free T4: 1.47 * T, Chol: 91, LDL: 43, HDL: 20 3) Diarrhea-->resolved * Denies today * negative C diff Ag and toxin * stool leukocytes + * giardia pending 4)Diabetes, uncontrolled * HgbA1c: 9.4 * Accuchecks QAC and HS * Novolog ISS * Lantus 10units QHS added for uncontrolled diabetes * Glimepiride 2mg PO daily * Held home Metformin 1000mg PO BID * Enalapril 5mg PO daily 5) Hypercholesterolemia--Chronic * held Crestor 10mg PO HS given rise in LFTs * T, Chol: 91, LDL: 43, HDL: 20 6) Osteoporosis--Chronic * Vitamin D3 2,000u PO daily 7) Hypokalemia * Monitor and replete 8) Hypomagnesium * Monitor and replete 9) Transaminitis * Mild increase * held statin * Upon discharge, advised to repeat LFTs in a week prior to restarting statin 10) Prophylaxis * SCDs * Heparin 5,000 units SC Q8 * Pepcid 20mg POQdaily
--- NOTE | 2017-06-15 04:10 | CON ---
DATE: 06/14/2017 COMPREHENSIVE UROLOGY CONSULTATION TIME OF CONSULTATION: Roughly 01:15 p.m. BRIEF HISTORY: The patient is a 67-year-old female from [facility] with a three-day history of recurrent urinary tract infections, who presents to [facility] Emergency Room with a history of fever which began on Sunday and eventually requiring admission to [facility]. The patient had an abdominopelvic CT done on 06/09/2017, which showed acute left pyelonephritis. The patient currently denies any abdominal pain or renal colic. She also denies dysuria at this time after treatment with IV antibiotics. Urine culture and sensitivity showed E. coli resistant to only Bactrim and ampicillin, otherwise sensitive to most antibiotics. The patient is currently on IV Rocephin and the E. coli is sensitive to this antibiotic including all the cephalosporins. The patient denies any prior history of any kidney stones or kidney disease. FAMILY HISTORY: No family history of kidney stones. PAST MEDICAL HISTORY: She denies any past surgical history. She is 11, para 11 with no abortions or C-sections. All normal vaginal deliveries. Past medical history is positive for diabetes mellitus and hypertension. SOCIAL HISTORY: No history of any alcohol or tobacco use. ALLERGIES: NO KNOWN ALLERGIES TO ANY MEDICATION. PHYSICAL EXAMINATION GENERAL: Today, the patient is a well-developed, well-nourished female. She is alert and oriented. HEENT EXAMINATION: Grossly within normal limits. NECK: Supple. Thyroid not palpable. ABDOMEN: Soft, nondistended, and nontender. No CVA tenderness. No suprapubic tenderness. EXTREMITIES: She has full range of motion of both upper and lower extremities. LABORATORY DATA: Her laboratory evaluation today 06/14/2017, after treatment with IV Rocephin shows a CBC with a WBC count of 7.6, hemoglobin of 12.3, hematocrit 35.9, and platelet count 228,000. Her chem profile shows a glucose of 245 which is elevated. Sodium 136, potassium 3.6, chloride 101, CO2 of 25, BUN and creatinine of 8 and 0.8 respectively with a GFR greater than 60. Calcium is 8.6. AST was 80 and ALT was 74. DIAGNOSTIC IMPRESSION: Diagnostic impression for this patient is acute left pyelonephritis, no evidence of any obstructive uropathy or kidney stones. PLAN: Plan for this patient is to just continue her on her current regimen and the patient can be discharged home on oral antibiotics which might include a cephalosporin. No urologic intervention at this time. Fly Borrero MD [facility]
--- NOTE | 2017-06-15 09:11 | CON ---
DATE: ADDENDUM Her urinalysis shows improvement since her admission date of 06/09/2017 with urine showed large blood with 25 wbc's, 10 rbc's and moderate bacteria per high power field and the urinalysis on 06/12/2017 showed only 1+ blood and 3 wbc's per high power field with 2+ glucose and pH was 7.0, specific gravity was 1.008. The nitrite and bilirubin were both negative and urobilinogen is normal. Leucocyte esterase, which was large on admission was now negative. PLAN: This patient also is just to repeat urinalysis in 2 weeks to see if the blood in the urine disappears. Fly Borrero MD
--- NOTE | 2017-06-17 17:09 | CARD ---
APPROVED REPORT EKG Measurement Heart [id number] <Conclusion> Normal sinus rhythm Normal ECG
== END 2017-06-14 16:35 | disposition home or self-care (01) | DRG 871 ==
LOC: C.ER 17:08 → C.9E 21:09 → C.3T 21:54
PROVIDERS: ADMIT Hospitalist; ATTEND Hospitalist
DX: A41.51 Sepsis due to Escherichia coli [E. coli] (principal); J18.9 Pneumonia, unspecified organism; N10 Acute pyelonephritis; E87.1 Hypo-osmolality and hyponatremia; I10 Essential (primary) hypertension; H92.02 Otalgia, left ear; F17.200 Nicotine dependence, unspecified, uncomplicated; M81.0 Age-related osteoporosis without current pathological fracture; E78.00 Pure hypercholesterolemia, unspecified; R19.7 Diarrhea, unspecified; E11.65 Type 2 diabetes mellitus with hyperglycemia; E87.6 Hypokalemia; E83.42 Hypomagnesemia; R74.0 Nonspecific elevation of levels of transaminase and lactic acid dehydrogenase [LDH]; Z79.84 Long term (current) use of oral hypoglycemic drugs; Z79.1 Long term (current) use of non-steroidal anti-inflammatories (NSAID)

== ENCOUNTER 2018-12-18 12:17 | Outpatient (CLI) | payer MEDICAID | END 2018-12-18 12:18 | disposition home or self-care (01) | LOC: C.MAMMO 12:18 | DX: Z12.31 Encounter for screening mammogram for malignant neoplasm of breast (principal) ==